=== PATIENT | male | born 1940 | race Caucasian/White ===

== ENCOUNTER → 2018-02-17 09:29 | Outpatient (CLI) | payer MEDICARE, OTHER ==
[2013-03-04 06:33] VITALS: BMI 28.6
== END | disposition home or self-care (01) ==
LOC: D.CT 09:29
DX: I71.4 Abdominal aortic aneurysm, without rupture (principal)

== ENCOUNTER 2019-01-27 17:41 | Emergency (ER) | payer MEDICARE, OTHER ==
[~2019-01-27] VITALS: Ht 185.4 cm; Wt 95.5 kg
[2019-01-27 18:09] VITALS: Ht 185.4 cm; Wt 95.5 kg
[2019-01-27] MEDS ORDERED: LISINOPRIL20 MG PO (18:11)
[2019-01-27] MEDS ORDERED: COREG 3.1253.125 MG PO (18:11)
[2019-01-27] MEDS ORDERED: PRAVACHOL20 MG PO (18:12)
[2019-01-27] MEDS ORDERED: NORVASC10 MG PO (18:12)
[2019-01-27] MEDS ORDERED: ZETIA10 MG PO (18:12)
[2019-01-27 18:47] LABS: BASOPHILS 0.3 % (0-2); EOSINOPHILS 1.6 % (0-7); HEMATOCRIT 44.1 % (42.0-54.0); HEMOGLOBIN 15.3 g/dL (13.5-17.5); IMMATURE GRANULOCYTES 0.4 % (0-5); LYMPHOCYTES 17.7 % (15-50); MCH 28.9 pg (26.0-34.0); MCHC 34.7 g/dL (31.0-37.0); MCV 83.2 fL (80.0-100.0); MONOCYTES 11.4 % (2-11); NEUTROPHILS 68.6 % (40-80); PLATELET COUNT 308 10x3/uL (130-400); RDW 13.5 % (11.5-14.5); WBC 13.9 10x3/uL (4.8-10.8)
[2019-01-27 18:58] LABS: APTT 30.8 SECONDS (22.8-39.4); INR 1.04 (0.85-1.17); PROTIME 13.1 SECONDS (11.6-15.0)
[2019-01-27 18:59] LABS: D-DIMER-QUANTITATIVE 1.28 ug/mLFEU (0.20-0.54)
[2019-01-27 19:21] LABS: ALBUMIN 3.6 g/dL (3.4-5.0); ALKALINE PHOSPHATASE 99 U/L (46-116); ALT (SGPT) 69 U/L (10-68); BILIRUBIN - TOTAL 0.49 mg/dL (0.2-1.3); CALC OSMOLALITY 269 mosm/kg (275-300); CALCIUM 9.2 mg/dL (8.5-10.1); CHLORIDE - SERUM 94 mmol/L (98-107); CREATININE - SERUM 1.3 mg/dL (0.6-1.3); GLUCOSE 118 mg/dL (74-106); POTASSIUM - SERUM 3.9 mmol/L (3.5-5.1); PROTEIN - SERUM 8.3 g/dL (6.4-8.2); SODIUM 132 mmol/L (136-145); UREA NITROGEN 25 mg/dL (7-18); eGFR NON AFRICAN AMERICAN 56 mL/min (90-120)
[2019-01-27 19:33] LABS: CREATINE KINASE 133 UL (21-232)
[2019-01-27 19:35] LABS: CKMB 1.1 U/L (0.0-3.6); TROPONIN-I < 0.017 ng/mL (0.000-0.060)
[2019-01-27] MEDS ORDERED: ALBUTEROL SULF8.5 GM INH (21:47)
[2019-01-27 22:35] VITALS: BP 132/80
== END 2019-01-27 22:36 | disposition home or self-care (01) ==
LOC: D.ER 17:41
PROVIDERS: Emergency Medicine
DX: J18.9 Pneumonia, unspecified organism (principal)

== ENCOUNTER 2019-02-08 11:57 | Outpatient (CLI) | payer MEDICARE, OTHER ==
[~2019-02-08] VITALS: Ht 185.4 cm; Wt 93.2 kg
--- NOTE | ~2019-02-08 | HEMODYNAMI ---
PATIENT:ANGELES YUNG MEDICAL RECORD: [id number] : 40 LOCATION:[facility] ADMISSION DATE: 02/08/19 Generatedon:02/08/201915:43 Patient name: ANGELES YUNG Patient #: [id number] SSN: : 1940 Date of study: 02/08/2019 Page: Of Hemodynamic Procedure Report Patient Data Patient Demographics Procedure consent was obtained First Name: ANGELES Gender: Male Last Name: AGA : 1940 Middle Initial: MARILYN Age: 79 year(s) Patient #: [id number] Race: Unknown Additional ID: [id number] Contact details [address]: [address] [place] [address] State: [place] City: [place] Zip code: [address] Past Medical History Allergies Allergen Reaction Date Comments Reported Other allergy 02/08/2019 PCN V Potassium, morphine Admission Admission Data Admission Date: 02/08/2019 Admission Time: 11:57 Admit Source: Other Lab Results Lab Result Date: 02/08/2019 Lab Result Time: 12:30 Biochemistry Name Units Result Min Max BUN mg/dl 18 --(---*)-- 7 18 Creatinine mg/dl 1.1 --(--*-)-- 0.6 1.3 CBC Name Units Result Min Max Hematocrit % 40.9 -*(----)-- 42 54 Hemoglobin g/dl 14.6 --(-*--)-- 13.5 17.5 Procedure Procedure Types Cath Procedure Diagnostic Procedure C LHC w/Coronaries Aortic Root Angiography Sedation Charges Moderate Sedation up to 30 minutes Procedure Description Procedure Date Procedure Date: 02/08/2019 Procedure Start Time: 14:54 Procedure End Time: 15:42 Procedure Staff Name Function Bernardo Dia MD Performing Physician Neto Posada RT Monitor Lorene De Dios RT Scrub Rosalind Flood RN Nurse Andrez Liriano RN Benzene Washer Procedure Data Cath Procedure Fluoroscopy Diagnostic fluoroscopy Total fluoroscopy Time: time: 17.5 min 17.5 min Diagnostic fluoroscopy Total fluoroscopy dose: dose: 1599 mGy 1599 mGy Contrast Material Contrast Material Type Amount (ml) Isovue 300 167 Entry Location Entry Primary Successful Side Size Upsize Upsize Entry Closure Flores ccessful Closure Location (Fr) 1 (Fr) 2 (Fr) Remarks Device Remarks Radial Right 6 Fr Mechanical artery Short Compression Femoral Right 5 Fr Exoseal artery Estimated blood loss: 5 ml Diagnostic catheters Device Type Used For End Catheter Placement DIAGNOSTIC Saulo 110cm Procedure 5Fr catheter (653010) DIAGNOSTIC AR MOD 5Fr Procedure Catheter ([id number]) DIAGNOSTIC AR2 MOD 5 Fr Procedure catheter (819006V) DIAGNOSTIC AR MOD 5Fr Procedure Catheter (219294U) DIAGNOSTIC JL 5 5Fr Procedure catheter (276206V) DIAGNOSTIC AR2 MOD 5 Fr Procedure catheter (463589Q) DIAGNOSTIC MPA-2 5Fr Procedure catheter (245173H) DIAGNOSTIC 3DRC 5Fr Procedure catheter (124240K) DIAGNOSTIC AL2 5Fr Procedure catheter (387339D) DIAGNOSTIC AL1 5Fr Procedure catheter (160034M) DIAGNOSTIC RCB 5Fr Procedure catheter (634965J) DIAGNOSTIC Pigtail 5Fr Procedure catheter (422500H) DIAGNOSTIC Billings 110cm 5 Procedure Fr catheter (027895) Procedure Complications No complications Procedure Medications Medication Administration Route Dosage 0.9% NaCl I.V. 100 ml/hr Oxygen etCO2 Nasal cannula 2 l/min Lidocaine 2% added to field 20 Heparin Flush Bag added to field 2 bags (1000units/500ml NS) Radial Cocktail added to field 1 syringe (Verapomil 2mg/Nitro 400mcg/Heparin 1500units) Versed I.V. 2 mg Fentanyl I.V. 50 mcg Versed I.V. 2 mg Fentanyl I.V. 50 mcg Hemodynamics Rest HGB: 14.6 (g/dl) Heart Rate: 53 (bpm) Pressure Samples Time Site Value (mmHg) Purpose Heart Use Rate(bpm) 15:00 LV 124/-4,4 Snapshot 69 Gradients Valve Time Site Site Mean SEP/DFP Peak To Heart Use 1 2 (mmHg) (sec/min) Peak Rate (mmHg) (bpm) Aortic 15:01 LV AO 65 Snapshots Pre Cath Intra NCS Post Cath Vital Signs Time Heart Resp SPO2 etCO2 NIBP (mmHg) Rhythm Pain Sedation Rate (ipm) (%) (mmHg) Status Level (bpm) 14:36:27 57 11 98 31 144/86(135) SB 0 (11) 10(A) , No pain 14:40:51 51 17 96 32.2 126/73(116) SB 0 (11) 10(A) , No pain 14:45:09 54 16 96 34 121/72(102) SB 0 (11) 10(A) , No pain 14:49:25 56 17 98 34.5 109/72(96) SB 0 (11) 10(A) , No pain 14:53:39 51 16 98 18.7 108/75(88) SB 0 (11) 9(A) , No pain 14:57:51 64 16 97 27.7 101/70(79) NSR 0 (11) 9(A) , No pain 15:02:01 66 19 98 26.9 108/74(86) NSR 0 (11) 9(A) , No pain 15:06:15 58 15 97 33 123/75(98) SB 0 (11) 9(A) , No pain 15:10:33 56 17 96 29.9 119/74(89) SB 0 (11) 9(A) , No pain 15:15:36 55 18 96 28.5 119/73(94) SB 0 (11) 9(A) , No pain 15:19:54 53 18 97 29.2 125/72(103) SB 0 (11) 9(A) , No pain 15:24:53 53 16 96 30.7 123/77(105) SB 0 (11) 9(A) , No pain 15:29:07 53 16 96 26.9 122/74(102) SB 0 (11) 9(A) , No pain 15:33:25 56 16 96 27.8 116/71(95) SB 0 (11) 9(A) , No pain 15:37:43 54 16 98 30.6 114/65(94) SB 0 (11) 10(A) , No pain 15:41:59 55 15 95 0 117/75(96) SB 0 (11) 10(A) , No pain Medications Time Medication Route Dose Verified Delivered Reason Notes E ffectiveness by by 14:36:15 0.9% NaCl I.V. 100 Bernardo Boyer used for ml/hr [place] Flood proposal analyst 14:36:21 Oxygen etCO2 2 l/min Bernardo Rosalind used for Nasal [place] procedure cannula RN 14:36:38 Lidocaine 2% added 20ml Bernardo Bernardo for local to vial [place] Dia MD anesthetic field 14:36:43 Heparin Flush added 2 bags Bernardo Bernardo used for Bag to [place] Dia MD procedure (1000units/500ml field NS) 14:36:49 Radial Cocktail added 1 Bernardo Bernardo used for (Verapomil to syringe [place] Dia MD procedure 2mg/Nitro field 400mcg/Heparin 1500units) 14:51:17 Versed I.V. 2 mg Bernardo Rosalind for [place] sedation RN 14:51:34 Fentanyl I.V. 50 mcg Bernardo Rosalind for [place] sedation RN 14:55:04 Fentanyl I.V. 50 mcg Bernardo Rosalind for [place] sedation RN 14:56:53 Versed I.V. 2 mg Bernardo Rosalind for [place] sedation puppet maker Log Time Note 14:19:40 Informed consent obtained and on chart 14:19:43 Admit Source: Other 14:20:06 Diagnostic Cath status Elective 14:20:08 Time tracking: Regular hours (M-F 7:00 - 5:00) 14:20:11 Plan of Care:Hemodynamics will remain stable., Cardiac rhythm will remain stable., Comfort level will be maintained., Respiratory function will remain adequate., Patient/ family verbilizes understanding of procedure., Procedure tolerated without complication., Recovers from procedure without complications.. 14:20:32 H&P Date Dictated: 01/28/2019 Within 30 days and on chart., H&P Addendum completed by physician on day of procedure. (MUST COMPLETE FOR ALL OUTPATIENTS). 14:21:27 Andrez Liriano RN sent for patient. Start room use. 14:22:10 Lab Result : Creatinine 1.1 mg/dl 14:22:10 Lab Result : BUN 18 mg/dl 14:22:10 Lab Result : Hemoglobin 14.6 g/dl 14:22:10 Lab Result : Hematocrit 40.9 % 14:22:13 Lab results completed and on chart. 14:28:47 Patient received from Pre/Post Procedure Room to CCL 2 Alert and oriented. Tansferred to table in Supine position. 14:28:48 Warm blankets applied, and izzy hugger turned on for patient comfort. 14:28:49 Correct patient and procedure confirmed by team. 14:28:49 ECG and BP/O2 sat monitors applied to patient. 14:28:51 Pre-procedure instructions explained to patient. 14:28:52 Pre-op teaching completed and patient verbalized understanding. 14:28:53 Family in waiting room. 14:28:54 Patient NPO since Midnight. 14:29:22 Patient allergic to Other allergyPCN V Potassium, morphine 14:35:12 Vital chart was started 14:36:15 0.9% NaCl 100 ml/hr I.V. was administered by Rosalind Flood RN; used for procedure; 14:36:21 Oxygen 2 l/min etCO2 Nasal cannula was administered by Rosalind Flood RN; used for procedure; 14:36:38 Lidocaine 2% 20ml vial added to field was administered by Bernardo Dia MD; for local anesthetic; 14:36:43 Heparin Flush Bag (1000units/500ml NS) 2 bags added to field was administered by Bernardo Dia MD; used for procedure; 14:36:49 Radial Cocktail (Verapomil 2mg/Nitro 400mcg/Heparin 1500units) 1 syringe added to field was administered by Bernardo Dia MD; used for procedure; 14:43:18 Baseline sample Acquired. 14:43:23 Rhythm: sinus rhythm 14:43:24 Full Disclosure recording started 14:45:10 Is patient on blood thinner?No 14:45:12 Patient diabetic? No. 14:45:15 Previous problem with sedation/anesthesia? No ? 14:45:17 Snore? Yes 14:45:18 Sleep apnea? No 14:45:19 Deviated septum? No 14:45:20 Opens mouth fully? Yes 14:45:20 Sticks out tongue? Yes 14:45:22 Airway obstruction? No ? 14:45:25 Dentures? No ? 14:45:29 Pre procedure: right dorsailis pedis pulse 1+ Palpable, but thready & weak; easily obliterated 14:45:31 Patient pain scale 0/10 ?. 14:45:38 IV patent on arrival in left wrist with 0.9% NaCl at O. 14:45:42 Right Radial & Right Groin area was prepped with chlora-prep and draped in sterile fashion 14:45:42 Alarms reviewed by R. N. 14:45:43 Sharps counted by scrub and verified by R.N. 14:45:45 Use device set Radial Dx or PCI 14:45:46 ACIST Syringe (80254) opened to sterile field. 14:45:47 Medline Cath Pack ([id number]) opened to sterile field. 14:45:47 Bag Decanter (2002S) opened to sterile field. 14:45:48 ACIST Hand Control (75151) opened to sterile field. 14:45:49 ACIST Manifold (82129) opened to sterile field. 14:45:49 Tegaderm 4 x 4 (1626W) opened to sterile field. 14:45:50 DIAGNOSTIC WIRE .035 260cm J wire (452138) opened to sterile field. 14:45:50 MBrace Wrist Support (059821570) opened to sterile field. 14:45:51 SHEATH 6FR Slender (80-1060) opened to sterile field. 14:45:52 NEEDLE Cook 21G 4cm Radial (H44330) opened to sterile field. 14:47:18 Zero performed for pressure channel P1 14:50:18 Physician arrived 14:50:19 --------ALL STOP TIME OUT------ 14:50:19 Final Timeout: patient, procedure, and site verified with staff and physician. All members of the team are in agreement. 14:50:21 Right Radial & Right Groin site verified by team. 14:50:24 Maximum allowable Isovue 300 dose 300ml. Physician notified. (300ml for normal creatinines. For patients with creatinine of 1.7 or higher multiply weight(kg) x 5 divided by creatinine.) 14:50:29 Fire Safety Assessment: A--An alcohol-based skin anteseptic being used preoperatively., C--Open oxygen or nitrous oxide is being used., D--An ESU, laser, or fiber-optic light is being used. 14:50:32 Physical assessment completed. ASA score P 2 - A patient with mild systemic disease as per Bernardo Dia MD. 14:50:35 Sedation plan: IV Moderate Sedation Medication:Versed, Fentanyl 14:51:17 Versed 2 mg I.V. was administered by Rosalind Flood RN; for sedation; 14:51:34 Fentanyl 50 mcg I.V. was administered by Rosalind Flood RN; for sedation; 14:54:47 Procedure started. 14:54:50 Local anesthetic to right radial artery with Lidocaine 2% by Bernardo Dia MD.INITIAL ACCESS ONLY 14:54:57 A 6 Fr Short sheath was inserted into the Right Radial artery 14:55:04 Fentanyl 50 mcg I.V. was administered by Rosalind Flood RN; for sedation; 14:55:35 A DIAGNOSTIC Saulo 110cm 5Fr catheter (745347) was advanced over the wire and used for Procedure. 14:56:53 Versed 2 mg I.V. was administered by Rosalind Flood RN; for sedation; 14:58:40 GLIDE WIRE ANGLE 260cm (FD9441) opened to sterile field. 14:58:48 glide wire advanced. 14:59:19 TORQUE DEVICE PLASTIC .038 ( TD01) opened to sterile field. 15:00:41 LV gram done using CHAVEZ 15:00:44 Injector settings: Ml/sec: 5, Volume: 15, 15:00:48 LV hemodynamics recorded. 15:00:53 EF : 60 % 15:03:11 Catheter exchanged over wire. 15:03:18 A DIAGNOSTIC AR MOD 5Fr Catheter (154195X) was advanced over the wire and used for Procedure. 15:04:35 RCA angiography performed. 15:05:02 Catheter exchanged over wire. 15:05:21 A DIAGNOSTIC AR2 MOD 5 Fr catheter (968380Q) was advanced over the wire and used for Procedure. 15:07:21 Catheter removed. unable to cannulate vessel. 15:07:41 SHEATH 5FR Burt (DVX251) opened to sterile field. 15:08:39 Local anesthetic to right femoral artery with Lidocaine 2% by Bernardo Dia MD.ADDITIONAL ACCESS 15:08:46 A 5 Fr sheath was inserted into the Right Femoral artery 15:11:16 A DIAGNOSTIC AR MOD 5Fr Catheter (795955W) was advanced over the wire and used for Procedure. 15:11:29 Catheter removed. unable to cannulate vessel. 15:11:40 A DIAGNOSTIC JL 5 5Fr catheter (811246K) was advanced over the wire and used for Procedure. 15:13:10 LCA angiography performed. 15:14:32 Catheter exchanged over wire. 15:17:08 A DIAGNOSTIC AR2 MOD 5 Fr catheter (850513T) was advanced over the wire and used for Procedure. 15:17:10 RCA angiography performed. 15:18:08 Catheter exchanged over wire. 15:19:09 A DIAGNOSTIC MPA-2 5Fr catheter (439781W) was advanced over the wire and used for Procedure. 15:19:55 Catheter exchanged over wire. 15:20:06 A DIAGNOSTIC 3DRC 5Fr catheter (196421K) was advanced over the wire and used for Procedure. 15:24:55 A DIAGNOSTIC AL2 5Fr catheter (997359D) was advanced over the wire and used for Procedure. 15:25:04 Catheter removed. unable to cannulate vessel. 15:25:11 A DIAGNOSTIC AL1 5Fr catheter (236768S) was advanced over the wire and used for Procedure. 15:28:06 Catheter removed. unable to cannulate vessel. 15:28:13 A DIAGNOSTIC RCB 5Fr catheter (105157Q) was advanced over the wire and used for Procedure. 15:30:39 RCA angiography performed. 15:30:48 A DIAGNOSTIC Pigtail 5Fr catheter (050324F) was advanced over the wire and used for Procedure. 15:32:21 Aortic Root visualized 15:34:35 Catheter exchanged over wire. 15:34:44 A DIAGNOSTIC Billings 110cm 5 Fr catheter (651141) was advanced over the wire and used for Procedure. 15:36:41 RCA angiography performed. 15:36:42 Catheter removed. 15:36:46 TR BAND Standard (NRB25LLP) opened to sterile field. 15:36:52 EXOSEAL 5Fr (EX500) opened to sterile field. 15:37:29 Sheath removed intact; hemostasis achieved with Mechanical Compression to the Right Radial artery. 15:37:56 Sheath removed intact; hemostasis achieved with Exoseal to the Right Femoral artery. 15:38:44 Procedure ended.(Physican Out) 15:40:22 Fluoroscopy time 17.50 minutes. 15:40:33 Fluoroscopy dose: 1599 mGy 15:40:33 Flurop Dose total: 1599 15:40:39 Contrast amount:Isovue 300 167ml. 15:40:40 Sharps counted by scrub and verified by R.N. 15:40:42 TR band inflated with 12cc of air. 15:40:43 Insertion/operative site no bleeding no hematoma. 15:40:46 Post-op/insertion site Right Femoral artery dressed using a 4 x 4 and Tegaderm. 15:40:49 Post right femoral artery:stable, soft, clean and dry 15:40:51 Post Procedure Pulses reassessed and unchanged 15:40:53 Post-procedure physical assessment completed. ASA score P 2 - A patient with mild systemic disease as per Bernardo Dia MD. 15:40:55 Post procedure rhythm: unchanged. 15:40:58 Estimated blood loss: 5 ml 15:41:00 Post procedure instruction explained to patient.Patient verbalizes understanding. 15:41:00 Patient needs reinforcement of post procedure teaching. 15:41:20 Procedure type changed to Cath procedure, Diagnostic procedure, LHC, LHC w/Coronaries, Aortic Root Angiography, Sedation Charges, Moderate Sedation up to 30 minutes 15:42:19 Procedure and supply charges have been captured, reviewed, submitted and are correct. 15:42:25 Procedure Complication : No complications 15:42:27 Vital chart was stopped 15:42:30 See physician's report for complete and final results. 15:42:33 Report given to Pre/Post Procedure Room. 15:42:35 Patient transfered to Pre/Post Procedure Room with Stretcher. 15:42:37 Procedure ended. 15:42:37 Full Disclosure recording stopped 15:42:41 End room use (Document Last) Device Usage Item Name Manufacture Quantity Catalog Hospital Part Current Minimal Lot# / Number Charge Number Stock Stock Serial# Code ACIST Acist 1 97426 680526 257934 463389 20 Syringe Medical (21660) Systems Inc Medline Medline 1 [id number] 581179 83449 382617 5 Cath Pack ([id number]) Bag Microtek 1 352559 70450 999353 5 Decanter Medical Inc. () ACIST Hand Acist 1 70991 677311 908597 775584 5 Control Medical (52548) Systems Inc ACIST Acist 1 68269 340317 799784 787224 5 Manifold Medical (17059) Systems Inc Tegaderm 4 3M 1 1626W 189373 365921 056226 5 x 4 (1626W) DIAGNOSTIC St Manuel 1 615770 425365 692670 016440 30 WIRE .035 260cm J wire (122915) MBrace Advanced 1 140-0250-00 746467 99647 133236 5 Wrist Vascular Support Dynamics (541245177) SHEATH 6FR Terumo 1 [id number] 458561 619101 184159 5 Slender (80-1060) NEEDLE Cook [place] [employer] 1 I77332 828221 499448 901213 5 21G 4cm Radial (C66949) DIAGNOSTIC Terumo 1 405023 875817 557317 684016 5 Saulo 110cm 5Fr catheter (960126) GLIDE WIRE Terumo 1 WW9195 886164 314433 862180 5 ANGLE 260cm (LW3357) TORQUE [place] 1 TD01 024660 655203 827528 5 DEVICE Scientific PLASTIC .038 ( TD01) DIAGNOSTIC Cardinal 1 033766R 688669 106341 495548 15 AR MOD 5Fr Health Catheter (974927Q) DIAGNOSTIC Cardinal 1 174464S 826604 503838 875782 20 AR2 MOD 5 Health Fr catheter (787268T) SHEATH 5FR Terumo 1 MEB919 498331 890917 357813 5 Burt (TEZ557) DIAGNOSTIC Cardinal 1 409491R 175149 868630 958602 5 JL 5 5Fr Health catheter (900176D) DIAGNOSTIC Cardinal 1 682355H 755111 389211 966012 5 MPA-2 5Fr Health catheter (234132Q) DIAGNOSTIC Cardinal 1 854814L 908377 081353 883876 9 3DRC 5Fr Health catheter (039133M) DIAGNOSTIC Cardinal 1 584880F 322552 226711 772364 15 AL2 5Fr Health catheter (475551Z) DIAGNOSTIC Cardinal 1 079341K 989087 589441 243364 15 AL1 5Fr Health catheter (887005R) DIAGNOSTIC Cardinal 1 051375B 978460 724271 766939 5 RCB 5Fr Health catheter (697827N) DIAGNOSTIC Cardinal 1 384649A 559650 143737 511059 5 Pigtail 5Fr Health catheter (631668H) DIAGNOSTIC Terumo 1 40-0790 868439 406437 477907 5 Billings 110cm 5 Fr catheter (130699) TR BAND Terumo 1 JXY56-VJI 002043 023833 302857 40 Standard ([id number]) EXOSEAL 5Fr Cardinal 1 EX500 115992 353188 532601 10 (EX500) Health Signature [facility] Stage Time Signature Unsigned Intra-Procedure 02/08/2019 Neto Posada 3:43:18 PM RT(R) Signatures Monitor : Neto Posada RT Signature : Date : Time : [id number] [place] [address]
[~2019-02-08 11:57] MED LIST: ALBUTEROL SULF8.5 GM INH; COREG 3.1253.125 MG PO; LISINOPRIL20 MG PO; NORVASC10 MG PO; PRAVACHOL20 MG PO; ZETIA10 MG PO
[2019-02-08] MEDS ORDERED: PRINIVIL10 MG PO (12:14)
[2019-02-08] MEDS ORDERED: LISINOPRIL5 MG PO (12:14)
[2019-02-08] MEDS ORDERED: PRAVACHOL20 MG PO (12:15)
[2019-02-08] MEDS ORDERED: MUCINEX600 MG PO (12:16)
[2019-02-08] MEDS ORDERED: BAYER CHEWABLE81 MG PO (12:16)
[2019-02-08] MEDS ORDERED: ARMOUR THYROID90 MG PO (12:19)
[2019-02-08] MEDS ORDERED: HCTZ25 MG PO (12:19)
[2019-02-08 12:28] VITALS: BP 137/74; Ht 185.4 cm; Wt 93.2 kg
[2019-02-08 12:43] LABS: BASOPHILS 0.6 % (0-2); EOSINOPHILS 1.1 % (0-7); HEMATOCRIT 40.9 % (42.0-54.0); HEMOGLOBIN 14.6 g/dL (13.5-17.5); IMMATURE GRANULOCYTES 0.3 % (0-5); LYMPHOCYTES 33.6 % (15-50); MCH 29.1 pg (26.0-34.0); MCHC 35.7 g/dL (31.0-37.0); MCV 81.5 fL (80.0-100.0); MEAN PLATELET VOLUME 8.9 fL (7.4-10.4); MONOCYTES 10.3 % (2-11); NEUTROPHILS 54.1 % (40-80); PLATELET COUNT 301 10x3/uL (130-400); RBC 5.02 10x6/uL (4.20-6.10); RDW 13.3 % (11.5-14.5); WBC 10.6 10x3/uL (4.8-10.8)
[2019-02-08 12:56] LABS: ANION GAP 11.8 mmol/L (8-16); CALCIUM 9.2 mg/dL (8.5-10.1); CARBON DIOXIDE 28.3 mmol/L (21.0-32.0); CREATININE - SERUM 1.1 mg/dL (0.6-1.3); POTASSIUM - SERUM 4.1 mmol/L (3.5-5.1)
--- NOTE | 2019-02-08 16:10 | NUR ---
2L NC, NO RESP DISTRESS. RIGHT WRIST TR BAND AND RIGHT GROIN 5F EXOSEAL CDI, NO BLEEDING OR HEMATOMA NOTED. NO C/O PAIN OR NAUSEA. VSS. FAMILY AT BEDSIDE, CALL LIGHT WITHIN REACH.
--- NOTE | 2019-02-08 17:00 | NUR ---
HOB ELEVATED 30 DEGREES. RIGHT GROIN 5F EXOSEAL CDI. 3CC OF AIR REMOVED FROM TR BAND WITH NO BLEEDING NOTED. SIPPING ON DRINK AND EATING SANDWICH WITH NO C/O NAUSEA. VSS. WILL CONTINUE TO MONITOR CLOSELY.
--- NOTE | 2019-02-08 17:18 | NUR ---
3CC OF AIR REMOVED FROM TR BAND WITH NO BLEEDING NOTED.
--- NOTE | 2019-02-08 17:40 | NUR ---
2CC OF AIR REMOVED FROM TR BAND WITH NO BLEEDING NOTED. LEFT PIV D/C'D WITH CATHETER INTACT, BAND AID TO SITE. UP TO BEDSIDE TO GET DRESSED. AMBULATED TO RESTROOM.
--- NOTE | 2019-02-08 17:50 | NUR ---
REMAINING AIR REMOVED FROM TR BAND WITH NO BLEEDING NOTED. DRESSING PLACED TO SITE. DISCHARGE INSTRUCTIONS GIVEN TO PT AND , BOTH VERBALIZED UNDERSTANDING.
--- NOTE | 2019-02-08 18:00 | NUR ---
TAKEN OUT VIA WHEELCHAIR BY CATH CREW DIRECTOR. LEFT FACILITY WITH FAMILY AND ALL PERSOANL BELONGINGS.
== END 2019-02-08 18:00 | disposition home or self-care (01) ==
LOC: D.CATH 11:57
PROVIDERS: ATTEND Internal Medicine Cardiovascular Disease
DX: I25.119 Atherosclerotic heart disease of native coronary artery with unspecified angina pectoris (principal); I71.2 Thoracic aortic aneurysm, without rupture; Z01.812 Encounter for preprocedural laboratory examination

== ENCOUNTER → 2019-02-10 07:43 | Outpatient (CLI) | payer MEDICARE, OTHER ==
[2019-02-08 12:28] VITALS: BMI 27.1
[~2019-02-10 07:43] MED LIST changes: +ARMOUR THYROID90 MG PO; +BAYER CHEWABLE81 MG PO; +COLACE100 MG PO; +HCTZ25 MG PO; +HEMOCYTE PLUS C1 CAP PO; +K-DUR20 MEQ PO; +LISINOPRIL5 MG PO; +MUCINEX600 MG PO; +OMEPRAZOLE20 M1 PO; +PERCOCET 5-3251 TAB PO; +PLAVIX75 MG PO; +PRINIVIL10 MG PO; +RED YEAST RICE600 MG PO; +VITAMIN B-121000 MCG PO; +VITAMIN D31000 UNIT PO
== END | disposition home or self-care (01) ==
LOC: D.US 01-11 08:30
PROVIDERS: ATTEND Internal Medicine Cardiovascular Disease
DX: I25.10 Atherosclerotic heart disease of native coronary artery without angina pectoris (principal)

== ENCOUNTER → 2019-02-11 09:58 | Outpatient (CLI) | payer MEDICARE, OTHER ==
[2019-02-08 12:28] VITALS: BMI 27.1
== END | disposition home or self-care (01) ==
LOC: D.CT 09:58
PROVIDERS: ATTEND Thoracic Surgery (Cardiothoracic Vascular Surgery)
DX: I65.22 Occlusion and stenosis of left carotid artery (principal); I71.4 Abdominal aortic aneurysm, without rupture

== ENCOUNTER 2019-02-11 14:26 | Inpatient (IN) | payer MEDICARE, OTHER ==
[~2019-02-11] VITALS: Ht 185.4 cm; Wt 90.0 kg
[~2019-02-11 14:26] MED LIST changes: -COLACE100 MG PO; -HEMOCYTE PLUS C1 CAP PO; -K-DUR20 MEQ PO; -OMEPRAZOLE20 M1 PO; -PERCOCET 5-3251 TAB PO; -PLAVIX75 MG PO; -RED YEAST RICE600 MG PO; -VITAMIN B-121000 MCG PO; -VITAMIN D31000 UNIT PO
[2019-02-14] MEDS ORDERED: OMEPRAZOLE20 M1 PO (08:06)
[2019-02-14] MEDS ORDERED: VITAMIN B-121000 MCG PO (08:07)
[2019-02-14] MEDS ORDERED: VITAMIN D31000 UNIT PO (08:07)
[2019-02-14] MEDS ORDERED: RED YEAST RICE600 MG PO (08:08)
[2019-02-14 10:22] LABS: APPEARANCE CLEAR (CLEAR); BILIRUBIN NEGATIVE (NEGATIVE); COLOR YELLOW (YELLOW); GLUCOSE NEGATIVE (NEGATIVE); KETONE NEGATIVE (NEGATIVE); NITRITE NEGATIVE (NEGATIVE); PROTEIN NEGATIVE (NEGATIVE); SPECIFIC GRAVITY 1.005 (1.005-1.020); UROBILINOGEN NORMAL (NORMAL)
[2019-02-14 10:25] LABS: HEMATOCRIT 39.3 % (42.0-54.0); HEMOGLOBIN 13.8 g/dL (13.5-17.5); MCH 29.1 pg (26.0-34.0); MCHC 35.1 g/dL (31.0-37.0); MCV 82.7 fL (80.0-100.0); MEAN PLATELET VOLUME 8.5 fL (7.4-10.4); RBC 4.75 10x6/uL (4.20-6.10); RDW 13.3 % (11.5-14.5); WBC 7.8 10x3/uL (4.8-10.8)
[2019-02-14 10:41] LABS: ALBUMIN 3.5 g/dL (3.4-5.0); ANION GAP 8.1 mmol/L (8-16); BILIRUBIN - TOTAL 0.69 mg/dL (0.2-1.3); CALCIUM 9.2 mg/dL (8.5-10.1); CARBON DIOXIDE 30.7 mmol/L (21.0-32.0); CREATININE - SERUM 1.2 mg/dL (0.6-1.3); POTASSIUM - SERUM 3.8 mmol/L (3.5-5.1); PROTEIN - SERUM 7.6 g/dL (6.4-8.2)
[2019-02-14 11:49] LABS: APTT 34.7 SECONDS (22.8-39.4); INR 1.07 (0.85-1.17); PROTIME 13.4 SECONDS (11.6-15.0)
[2019-02-15] VITALS (25 sets, daily range): BP systolic 95–130; BP diastolic 45–88; Ht 185.4 cm; Wt 90.0 kg
--- NOTE | 2019-02-15 10:42 | NUR ---
PT ARRIVED TO ROOM 1000, TOOK OVER PT CARE FROM ANOTHER NURSE APPROX 1010, PT ALERT AND ORIENTED O2 4L NC, L NECK INCISION DRESSING CDI WITH OBDULIA DRAIN COMPRESSED, ICE IN PLACE, REMOVED BY DR HERMOSILLO, R SUBCLAVIAN CVL DRESSING CDI WITH PLASMALYTE 30ML/HR, NEOSYNEPHRINE 0.04MCG/KG/MIN, NOW 0.03 MCG/KG/MIN, NR RADIAL A LINE ZEROED WITH GOOD WAVEFORM, WRIST PROTECTOR IN PLACE, L HAND PIV SL, CRITICORE DRAINING YELLOW URINE, PT TEMP 37.5C, BLANKETS REMOVED PER REQUEST, NEURO CHECKS WNL, TONGUE AND SMILE WITHOUT DEVIATION AND HANG AND FOOT MOVEMENT WNL, TEDS AND SCDS IN PLACE, CALL LIGHT WITHIN REACH, FAMILY UPDATED BY DR HERMOSILLO AND IN ROOM, ALARMS SET, WILL CONTINUE TO MONITOR
--- NOTE | 2019-02-15 14:12 | NUR ---
1200 GRICELDA WEANED OFF [address] SANTOS NURSE NOTIFIED OF HR 56 NSR
--- NOTE | 2019-02-15 18:11 | NUR ---
1600 DANGLED ON SIDE OF BED 1800 SOME NAUSEA NOTED WITH DINNER TRAY, TOLERATING JUICE WELL BUT NOT EATING BROTH
--- NOTE | 2019-02-15 19:00 | NUR ---
REPORT RECEIVED CARE ASSUMED INITIAL SHIFT ASSESSMENT COMPLETED SEE FLOWSHEET PT RESTING IN BED HOB ELEVATED WATCHING TELEVISION. DRESSING TO LEFT NECK CDI WNL AND NO SWELLING OR DRAINAGE NOTED. JUAN DRAIN TO LEFT NECK WITH APPROXIMATELY 40CC DARK MAROON BLOOD IN COMPRESSED BULB. IS AT BEDSIDE PT EASILY PULLED 2250 FOLLOWED WITH GOOD COUGH. PT TEACHING DONE REGARDING IMPORTANCE OF IS AND PT VERBALIZED COMPREHENSION. RIGHT RADIAL A-LINE WITH GOOD WAVE FORM LEVELED AND ZEROED. CVP LEVELED AND ZEROED. F/C CATH CARE DONE WITH STAT LOCK ATTATCHED TO RIGHT INNER LEG. BED IN LOW POSITION CALL LIGHT IN REACH. IVF AND IV LINES CURRENT LABELED AND DATED APPROPRIATE.
--- NOTE | 2019-02-15 19:30 | NUR ---
PT TEACHING DONE REGARDING PENDING CABG AND INFORMATION BOOKLET REGARDING SURGERY GIVEN. QUESTIONS ANSWERED.
--- NOTE | 2019-02-15 21:00 | NUR ---
CALLED, SECURITY CODE VERIFIED. UPDATE GIVEN QUESTIONS ANSWERED
--- NOTE | 2019-02-15 23:00 | NUR ---
SHIFT REASSESSMENT COMPLETED SEE FLOWSHEET. NO SIGNIFICANT CHANGES
[2019-02-16] VITALS (24 sets, daily range): BP systolic 112–144; BP diastolic 51–87
--- NOTE | 2019-02-16 01:00 | NUR ---
PT SLEEPING WELL. HAVING SOME NONSYMPTOMATIC BRADYCARDIA.
--- NOTE | 2019-02-16 03:00 | NUR ---
SHIFT REASSESSMENT COMPLETED SEE FLOWSHEET. NO ACUTE CHANGES
--- NOTE | 2019-02-16 07:50 | NUR ---
0700 PT RECIEVED ALERT AN CHLOE IENTED O2 2L NC, DECREASED TO ROOM AIR, VSS DENIES PAIN R NECK INCISION CDI WITH OBDULIA DRAIN COMPRESSED SCANT BLOODY DRAINAGE, R SUBCLAVIAN CVL DRESSING CDI WITH PLASMALYTE 30ML/HR AND ZINACEF 11.4ML/HR, CRITICORE DRAINING YELLOW URINE, R A LINE ZEROED, WAVEFORM POOR AT TIMES, WRIST PROTECTOR IN PLACE, WILL CONTINUE TO MONITOR
--- NOTE | 2019-02-16 09:17 | NUR ---
OBDULIA DRAIN DCD DRESSING APPLIED, NO SIGNS OF BLEEDING, PT TOLERATED WELL
--- NOTE | 2019-02-16 09:51 | NUR ---
LARA CATHETER DCD TIP INTACT
--- NOTE | 2019-02-16 09:57 | OP ---
PATIENT NAME: ANGELES YUNG MEDICAL RECORD: [id number] :40 [facility]ATION[facility] ADMISSION DATE:02/15/19 SURGEON: CHUCK HERMOSILLO MD DATE OF OPERATION: 02/15/2019 SURGEON: Chuck Hermosillo MD EXTERIOR DESIGNER: Isaias Hsu. OPERATION PERFORMED: Left carotid endarterectomy. PREOPERATIVE DIAGNOSES: Left carotid stenosis and coronary artery disease. POSTOPERATIVE DIAGNOSES: Left carotid stenosis and coronary artery disease. ANESTHESIA: General endotracheal anesthesia. ESTIMATED BLOOD LOSS: 50 cc. COMPLICATIONS: None. SPECIMENS: Plaque. CONDITION: Stable. DISPOSITION: CV ICU. OPERATIVE FINDINGS: 1. Long irregular plaque in the internal carotid artery, feathered well distally and primary closure. 2. Neurologically intact to CV ICU. OPERATIVE INDICATION: Significant multivessel coronary artery disease and left carotid stenosis, asymptomatic. PROCEDURE NOTE IN DETAIL: The patient was brought to the operating suite. General anesthesia was obtained. The patient was prepped and draped. An oblique incision was made in the neck, taken down through the subcutaneous tissue and muscle layer where the common carotid was dissected out and encircled with a vessel loop. The plaque was long and irregular and the internal carotid was dissected out distally. Facial venous branches were divided between ligatures and suture ligatures as well as clips. The ansa was divided between clips. The external carotid and thyroid branch were encircled with vessel loops. Heparin was given. After the heparin had circulated, backbleeding was controlled with a bulldog clamp, inflow with a vascular clamp and backbleeding of the external carotid and thyroid branch controlled with vessel loops. After 2 minutes, the cerebral oximetry remained normal and the EEG was normal. Endarterectomy was begun by opening the common carotid artery, taking the arteriotomy out through the region of abnormal internal carotid and into the more distal internal carotid, where it was a normal-appearing artery. In the common carotid artery, the plaque was divided. Eversion endarterectomy of the external carotid was performed and the plaque feathered well distally. Thorough irrigation was undertaken. All bits of loose debris were removed. The artery was closed primarily and prior to completing the anastomosis both ends were flushed and thorough irrigation was undertaken. The anastomosis was completed, OPERATIVE REPORT [id number] ANGELES YUNG flow restored first to the external carotid and then to the internal carotid. Interrupted patch suture was used for hemostasis. Protamine was given. A drain was placed through a separate stab wound and in the first stab wound the external jugular was entered and it required a 1 cm incision for ligation and a separate stab wound for the drain. The neck was then closed in 3 layers including Dermabond on the skin. Anesthesia was reversed. The patient neurologically intact to CV ICU. TRANSINT:[id number] Voice Confirmation ID: [id number] DOCUMENT ID: [id number] CHUCK HERMOSILLO MD at 0957 CC: GODFREY BAPTISTE M.D. and JAIMIE LOVETT MD [id number] DICTATION DATE: 02/15/19 1252 ART PROFESSOR: 02/15/19 1320 ADM IN [place] [id number] [place] [address]
[2019-02-16 14:22] LABS: BASOPHILS 0.3 % (0-2); EOSINOPHILS 1.2 % (0-7); HEMOGLOBIN 12.5 g/dL (13.5-17.5); IMMATURE GRANULOCYTES 0.1 % (0-5); MCHC 34.7 g/dL (31.0-37.0); MCV 83.5 fL (80.0-100.0); MEAN PLATELET VOLUME 8.7 fL (7.4-10.4); MONOCYTES 10.1 % (2-11); NEUTROPHILS 66.3 % (40-80); RBC 4.31 10x6/uL (4.20-6.10); RDW 13.6 % (11.5-14.5); WBC 9.5 10x3/uL (4.8-10.8)
[2019-02-16 14:40] LABS: PLATELET COUNT 247 10x3/uL (130-400)
[2019-02-16 14:41] LABS: APTT 32.6 SECONDS (22.8-39.4); INR 1.23 (0.85-1.17); PROTIME 14.9 SECONDS (11.6-15.0)
[2019-02-16 14:47] LABS: ALBUMIN 2.9 g/dL (3.4-5.0); ANION GAP 9.9 mmol/L (8-16); BILIRUBIN - TOTAL 0.62 mg/dL (0.2-1.3); CALCIUM 8.5 mg/dL (8.5-10.1); CARBON DIOXIDE 29.6 mmol/L (21.0-32.0); CREATININE - SERUM 1.1 mg/dL (0.6-1.3); PHOSPHOROUS 2.8 mg/dL (2.5-4.9); POTASSIUM - SERUM 3.5 mmol/L (3.5-5.1); T4 THYROXIN - FREE 1.04 ng/dL (0.76-1.46); THYROID STIMULATING HORMONE 0.57 uIU/mL (0.36-3.74); URIC ACID 3.9 mg/dL (2.6-7.2)
--- NOTE | 2019-02-16 16:22 | MORECARE ---
CASE MANAGEMENT DISCHARGE SUMMARY PATIENT: ANGELES YUNG UNIT: [id number] ADM DATE: 02/15/19 AGE: 79 : 40 SEX: M ROOM/BED: D.06 AUTHOR: SEAN,DOC PHYSICIAN: REFERRING PHYSICIAN: OSCAR HERMOSILLO MD DATE OF SERVICE: 02/16/19 Discharge Plan Patient Name: ANGELES YUNG Facility: [facility]:[place] : 1940 Planned Disposition: Home Anticipated Discharge Date: Discharge Date: Expected LOS: Initial Reviewer: [email or web address] Initial Review Date: 02/15/2019 Generated: 02/16/19 5:21 pm Comments DCP- Discharge Planning Updated by [email or web address]: Janna Mitchell on 02/16/19 3:[address] Patient Name: ANGELES YUNG Admission Status: Elective Accout number: [id number] Admission Date: 02-15-2019 : 1940 Admission Diagnosis: Attending: OSCAR HERMOSILLO Current LOS: 1 Anticipated DC Date: Planned Disposition: Home Primary Insurance: MEDICARE A & B Discharge Planning Comments: CM met with patient at bedside. Patient states he lives at home with his spouse (Jolanta). He plans on returning to their home upon discharge. He states he feels safe at his home. He states he will have family drive him home upon discharge. He denies any discharge needs at this time. Patient may require walk test if 02 is needed upon discharge. CM will continue to follow and assist as needed with discharge planning / needs. Air Transportation Provider: Janna Mitchell DCPIA - Discharge Planning Initial Assessment Updated by [id number]: Janna Mitchell on 02/16/19 4:16 pm * Is the patient Alert and Oriented? Yes * How many steps to enter\exit or inside your home? * PCP RACHELL * Pharmacy [facility] * Preadmission Environment Home with Family * ADLs Independent * Equipment Walker * List name and contact numbers for known caregivers / representatives who currently or will assist patient after discharge: JOLANTA YUNG - - [phone], * Verbal permission to speak to the caregivers and representatives has been obtained from the patient. Yes * Community resources currently utilized None * Additional services required to return to the preadmission environment? No * Can the patient safely return to the preadmission environment? Yes * Has this patient been hospitalized within the prior 30 days at any hospital? No Patient Name: ANGELES YUNG Page [id number] at 1622 All edits/amendments must be made on the electronic document DICTATION DATE: 02/16/191620 RELIGION PROFESSOR: JODIE 02/16/191620 RPT#: [id number] DC DATE: STATUS: ADM IN [facility] [address] [place] [address] END OF REPORT
--- NOTE | 2019-02-16 16:24 | NUR ---
1100 PT AMBULATED WITH THERAPY, TOLERATED WELL 1300 ATE 100% LUNCH 1500BATH AND LINEN CHANGE DONE
--- NOTE | 2019-02-16 19:00 | NUR ---
REPORT RECEIVED CARE ASSUMED. INITIAL SHIFT ASSESSMENT COMPLETED SEE FLOWSHEET. ALL ALARMS SET, VERIFIED AND AUDIBLE AT NURSES STATION. MONITORED PER STANDARD CVICU PROTOCOL. PT IS AAOX4 AND ABLE TO MAKE NEEDS KNOWN. CALL LIGHT IN REACH.
--- NOTE | 2019-02-16 21:00 | NUR ---
MEDS GIVEN DOCUMENTED ON DEC. PT TEACHING DONE PT DEMONSTRATED UNDERSTANDING. HS SNACK PROVIDED PER REQUEST.
--- NOTE | 2019-02-16 21:26 | NUR ---
CALLED, SECURITY WORD VERIFIED. QUESTIONS ANSWERED UPDATE GIVEN
--- NOTE | 2019-02-16 23:00 | NUR ---
SHIFT REASSESSMENT COMPLETED SEE FLOWSHEET. A-LINE NOTED TO BE VERY POSITIONAL. THIS IS NOT A CHANGE, WAS REPORTED TO BE POSITIONAL ALL DAY. HAS NOTED TO HAVE A PERSISTANT PRODUCTIVE COUGH. NO OTHER CHANGES
[2019-02-17] VITALS (28 sets, daily range): BP systolic 83–142; BP diastolic 58–83
--- NOTE | 2019-02-17 01:00 | NUR ---
PT RESTING WELL
--- NOTE | 2019-02-17 03:00 | NUR ---
SHIFT REASSESSMENT COMPLETED SEE FLOWSHEET. NO SIGNIFICANT CHANGES. PT HAS BEEN CLIPPED AND GIVEN BATH ORDERED FOR SURGERY. LINENS CHANGED. RIGHT RADIAL A-LINE CHANGED, WAVE FORM REMAINS DAMPENED AND AT TIME IS WITH ECELLENT WAVE DEFLECTION THEN RETURNS TO DAMPENED.
--- NOTE | 2019-02-17 05:30 | NUR ---
AT BEDSIDE UPDATE GIVEN QUESTIONS ANSWERED.
--- NOTE | 2019-02-17 06:15 | NUR ---
PT LEAVING UNIT WITH DR. DAVIES VIA BED FOR SURGERY. AND SON IN ROOM AND QUESTIONS ANSWERED
--- NOTE | 2019-02-17 10:09 | NUR ---
Nutrition Follow Up: Chart reviewed. Pt to have CABG today. Diet: NPO (Pt with good po intake prior to diet change) No BM since admit Labs reviewed Meds noted including Reglan Rec advancing MICHAEL when medically feasible. RD following.
--- NOTE | 2019-02-17 14:49 | NUR ---
PT ARRIVED TO ROOM FROM O.R.
--- NOTE | 2019-02-17 17:33 | NUR ---
PT EXTUBATED AT THIS TIME
--- NOTE | 2019-02-17 18:16 | NUR ---
PT TOLERATING ICE CHIPS AND SIPS OF WATER. PAIN PILL PROVIDED REQUESTED. DR HERMOSILLO CALLED AND NOTIFIED OF EXTUBATION AND MINIMAL CHEST TUBE OUTPUT. ALSO ASKED ABOUT GETTING PT UPDRAFT TREATMENTS. NEW ORDER RECEIVED.
[2019-02-17 20:46] LABS: MAGNESIUM - SERUM 2.3 mg/dL (1.8-2.4)
[2019-02-17 20:56] LABS: POTASSIUM - SERUM 4.2 mmol/L (3.5-5.1)
--- NOTE | 2019-02-17 21:00 | NUR ---
1900 REPORT RECIEVED CARE ASSUMED. ASSESSMENT DONE SEE FLOW SHEET. VSS. GRICELDA TITRATED OFF. CRASH CART PUT IN ROOM. TPM PUT IN ROOM. TPM WIRES PUT IN ROOM. NO SIGNS OF ACUTE DISTRESS. WATER SIPS GIVEN COUGH AND DEEP BREATH. IS 1000. 2100 MEDS GIVEN PER MAR. VSS NO SIGNS OF ACUTE DISTRESS NOTED. WILL CONTINUE TO MONITOR.
--- NOTE | 2019-02-17 21:49 | NUR ---
DR HERMOSILLO INFORMED OF PT STATUS. NO NEW ORDERS GIVEN. VSS. WILL CONTINUE TO MONITOR.
--- NOTE | 2019-02-17 23:00 | NUR ---
REASSESSMENT DONE SEE FLOW SHEET. VSS. DANGLED AT BEDSIDE. NO SIGNS OF ACUTE DISTRESS NOTED WILL CONTINUE TO MONITOR.
[2019-02-18] VITALS (27 sets, daily range): BP systolic 104–148; BP diastolic 51–81
--- NOTE | 2019-02-18 01:00 | NUR ---
PT LAYING IN BED RESTING VSS NO SIGNS OF ACUTE DISTRESS NOTED WILL CONTINUE TO MONITOR.
--- NOTE | 2019-02-18 02:58 | NUR ---
REASSESSMENT DONE SEE FLOW SHEET. VSS. NO SIGNS OF ACUTE DISTRESS NOTED. COMPLETE BED BATH GIVEN. LINEN CHANGE. DRESSING CHANGE.
--- NOTE | 2019-02-18 05:00 | NUR ---
PT UP TO CHAIR. MODERATE ASSISTANCE REQUIRED. IO COLLECTED. DAILY WEIGHT COLELCTED. NO SIGNS OF ACUTE DISTRESS NOTED.
[2019-02-18 05:15] LABS: HEMATOCRIT 34.2 % (42.0-54.0); HEMOGLOBIN 11.6 g/dL (13.5-17.5); MCH 28.4 pg (26.0-34.0); MCHC 33.9 g/dL (31.0-37.0); MCV 83.8 fL (80.0-100.0); MEAN PLATELET VOLUME 9.2 fL (7.4-10.4); RBC 4.08 10x6/uL (4.20-6.10); RDW 13.7 % (11.5-14.5); WBC 11.3 10x3/uL (4.8-10.8)
[2019-02-18 05:47] LABS: ALBUMIN 2.5 g/dL (3.4-5.0); ANION GAP 12.5 mmol/L (8-16); BILIRUBIN - TOTAL 0.67 mg/dL (0.2-1.3); CALCIUM 7.9 mg/dL (8.5-10.1); CARBON DIOXIDE 25.8 mmol/L (21.0-32.0); CREATININE - SERUM 1.3 mg/dL (0.6-1.3); POTASSIUM - SERUM 4.3 mmol/L (3.5-5.1); PROTEIN - SERUM 5.7 g/dL (6.4-8.2)
--- NOTE | 2019-02-18 18:30 | NUR ---
0710-DR HERMOSILLO AT [facility]-R GILES D/C'D DIRECTED-R PATRICIA D/C'D DIRECTRED--UP IN CHAIR 1030-PHYSICAL THERAPY AT [facility]-SEE RECORD 1230-ASSISTED TO BED-PRODUCTIVE COUGH 1400-DR HERMOSILLO AT [facility]-INFORMED OF URINE OUTPUT-NO FURTHER ORDERS AT THIS TIME 1630-ASSISTED TO BEDSIDE CHAIR-SEE EMAR RECORD
--- NOTE | 2019-02-18 19:00 | NUR ---
REPORT RECEIVED CARE ASSUMED. PT SITTING UP IN CHAIR. ASSESSMENT DONE SEE FLOW SHEET. VSS. PT VERBALIZED PAIN IN LOWER BACK AND GENERALIZED BODY PAIN. NO SIGNS OF ACUTE DISTRESS NOTED.
--- NOTE | 2019-02-18 19:45 | NUR ---
DR HERMOSILLO AT BEDSIDE. ORDER FOR 12.5MG DEMEROL PRN ONE DOSE FOR PAIN 7-10.
--- NOTE | 2019-02-18 20:23 | NUR ---
FAMILY AT BEDSIDE. SPECIALTY PAD REQUESTED. VSS. QUESTIONS ANSWERED TEACHING PROVIDED. WILL CONTINUE TO MONITOR.
--- NOTE | 2019-02-18 21:17 | NUR ---
DEMEROL PULLED PER ORDER. PT VERBALIZES AND VERBALIZED HE HAS HAD MULTIPLE REACTIONS WITH SWELLING AND VOMITTING WITH PAIN MEDICATIONS. HESITANT ON TAKING ANYTHING NEW. UNALBLE TO VERIFY ALLERGIC REACTIONS. WILL PASS IN REPORT.
[2019-02-19] VITALS (24 sets, daily range): BP systolic 104–153; BP diastolic 53–85
--- NOTE | 2019-02-19 01:00 | NUR ---
2300 REASSESSMENT DONE SEE FLOW SHEET VSS NO SIGNS OF ACUTE DISTRESS NOTED. 0100 WATER PROVIDED PER PT REQUEST WILL CONITNUE TO MONITOR.
--- NOTE | 2019-02-19 02:55 | NUR ---
REASSESSMENT DONE SEE FLOW SHEET VSS NO SIGNS OF ACUTE DISTRESS NOTED WILL CONTINUE TO MONITOR.
[2019-02-19 06:10] LABS: HEMATOCRIT 27.4 % (42.0-54.0); HEMOGLOBIN 9.4 g/dL (13.5-17.5); MCH 28.7 pg (26.0-34.0); MCHC 34.3 g/dL (31.0-37.0); MCV 83.5 fL (80.0-100.0); MEAN PLATELET VOLUME 9.3 fL (7.4-10.4); RBC 3.28 10x6/uL (4.20-6.10); RDW 13.7 % (11.5-14.5)
[2019-02-19 06:50] LABS: ALBUMIN 2.1 g/dL (3.4-5.0); ANION GAP 11.9 mmol/L (8-16); BILIRUBIN - TOTAL 0.73 mg/dL (0.2-1.3); CALCIUM 7.9 mg/dL (8.5-10.1); CARBON DIOXIDE 27.4 mmol/L (21.0-32.0); CREATININE - SERUM 1.1 mg/dL (0.6-1.3); POTASSIUM - SERUM 4.3 mmol/L (3.5-5.1); PROTEIN - SERUM 5.4 g/dL (6.4-8.2)
--- NOTE | 2019-02-19 09:17 | OP ---
PATIENT NAME: ANGELES YUGN MEDICAL RECORD: [id number] :40 [facility] ADMISSION DATE:02/15/19 SURGEON: CHUCK HERMOSILLO MD DATE OF OPERATION: 02/17/2019 SURGEON: Chuck Hermosillo MD ASPHALT SURFACE HEATER OPERATOR: Isaias Hsu PROCEDURES PERFORMED: 1. Coronary artery bypass graft times 5 (free left internal mammary artery to LAD; reverse saphenous vein graft from aorta to ramus intermedius, from the side of that vein graft to the first diagonal distally, aorta to posterolateral branch circumflex coronary artery, aorta to acute marginal branch of right coronary artery). 2. Endoscopic saphenous vein harvest. PREOPERATIVE DIAGNOSIS: Coronary artery disease. POSTOPERATIVE DIAGNOSIS: Coronary artery disease. ANESTHESIA: General endotracheal anesthesia. ESTIMATED BLOOD LOSS: Total cardiopulmonary bypass with Cell Saver retransfusion. COMPLICATIONS: None. SPECIMENS: None. CONDITION: Stable. DISPOSITION: CV ICU. OPERATIVE FINDINGS: 1. Transesophageal echocardiography revealed moderate aortic stenosis with 2.5 meters per second velocity. Previous ventriculogram had only a 19-mm aortic valve gradient. 2. Good quality greater saphenous vein harvested endoscopically from right lower extremity. 3. Good quality left internal mammary artery used as a free graft in case the area proximal to the left subclavian was needed for landing zone for TVAR for descending thoracic aortic aneurysm with enlargement. 4. LAD 2.0 mm with severe disease. 5. Ramus intermedius 2.5 mm intramyocardial with severe proximal disease. 6. First diagonal 1.5 mm with severe disease. 7. Obtuse marginal 1.5 mm with severe disease. 8. Acute marginal was the largest branch of the right across the inferior wall of the right ventricle to supply the septum. There was severe right coronary artery disease. The acute marginal was a 1.5-mm vessel. 9. A 4.5-cm ascending aorta with normal wall thickness. OPERATIVE INDICATION: Coronary artery disease, carotid stenosis, ascending aortic aneurysm, descending thoracic aortic aneurysm, abdominal aortic aneurysm with enlargement. OPERATIVE REPORT [id number] ANGELES YUNG OPERATIVE PROCEDURE IN DETAIL: The patient was brought to the operating suite. General anesthesia was obtained. The patient was prepped and draped. Greater saphenous vein was harvested endoscopically in the right lower extremity. Side branches were divided with electrocautery. The vessel was ligated proximally and distally, and was removed. Side branches were tied and small thin sites were oversewn. Leg was later closed in 2 layers including Dermabond on the skin and wrapped with an elastic wrap. Median sternotomy incision was made. Subcutaneous tissue was divided by electrocautery. The sternum was divided with a saw. Left hemisternum was elevated. Left pleural cavity was entered. Left internal mammary artery and vein were taken down as pedicle graft. Heparin was given. The proximal end of the internal mammary was divided and oversewn and the distal end was clipped. The internal mammary was cannulated and perfused with papaverine solution. Hemostasis was ensured. Sternal retractor was placed. Pericardium was opened. Heparin had been previously given and activated clotting time was appropriately elevated. Aorta was cannulated. Dual stage venous cannula was inserted. Retrograde cardioplegic cannula was inserted. The patient was placed on cardiopulmonary bypass. Sites for distal anastomoses were selected. Antegrade ascending cannula was placed. The patient was cooled. Crossclamp was placed. Cardioplegia was given antegrade and retrograde and this was repeated at 15- to 20-minute intervals including down the completed vein grafts. Distal anastomoses were performed in standard technique, proximal anastomosis with single cross-clamp technique and then a single yseh-eo-nilp anastomosis. Proximal and distal anastomotic sites were inspected for bleeding and single sutures in the proximals. The patient was fully rewarmed and weaned from cardiopulmonary bypass and stable. The patient was decannulated. The cannula sites were oversewn. Protamine was given. Thorough irrigation was undertaken. Grafts lay appropriately and there was no bleeding. Drains were placed in the mediastinum with 24-Hong Konger Ned drains and two #28 chest tubes into each pleural cavity. Pericardial fat was loosely reapproximated in the midline. Left chest was evacuated and irrigated. Internal mammary harvest site was inspected for bleeding. Sternum was closed with wires. Fascia was closed. Subcutaneous tissue was closed. Skin was closed. Dermabond was placed. Needle and sponge counts were reported as correct, and the patient was taken to the ICU in stable condition. TRANSINT:[id number] Voice Confirmation ID: [id number] DOCUMENT ID: [id number] CHUCK HERMOSILLO MD at 0917 CC: GODFREY BAPTISTE M.D. and JAIMIE LOVETT MD [id number] DICTATION DATE: 02/17/19 1506 HEAD FILTER PRESS TENDER: 02/17/191942 ADM IN [place] [address] [place] [id number]
--- NOTE | 2019-02-19 10:15 | NUR ---
0915-DR HERMOSILLO AT BEDSIDE -REVIEWED CXR AND PROGRESS WITH PT AND -DISCUSSED PLAN OF CONTINUING CARE WITH PT AND -INCENTIVE SPIROMETRY [id number] TV- WITH PRODUCTIVE RESULT
--- NOTE | 2019-02-19 14:34 | NUR ---
1340-AMBULATED WITH PHYSICAL THERAPY-ASSISTED BACK TO BED-SEE EMAR RECORD
--- NOTE | 2019-02-19 16:27 | NUR ---
1500-FAMILY AT BEDSIDE-PT RESTING IN BED-PRODUCTIVE COUGH 1600-NOTED O2 THB-42-[id number] CANULA-AND INCREASED TO 3L -PT STATED VERY TIRED-VISITORS LEFT ROOM- 1615-PT APPEARS TO BE RESTING SAT 91%
--- NOTE | 2019-02-19 19:00 | NUR ---
REPORT RECEIVED CARE ASSUMED. ASSESSMENT DONE SEE FLOW SHEET VSS. PT DRINKING MAG CITRATE. TEACHING PROVIDED. WILL CONTINUE TO MONITOR.
--- NOTE | 2019-02-19 20:15 | NUR ---
MED GIVEN PER MAR PER FAMILY REQUEST. WILL CONITNUE TO MONITOR.
--- NOTE | 2019-02-19 20:40 | NUR ---
MEDS GIVEN PER MAR VSS NO DIFFICULTY SWALLOWING NOTED WILL CONTINUE TO MONITOR.
--- NOTE | 2019-02-19 22:49 | NUR ---
REASSESSMENT COMPLETE VSS. NO SIGNS OF ACUTE DISTRESS NOTED.
[2019-02-20] VITALS (20 sets, daily range): BP systolic 102–136; BP diastolic 54–83
--- NOTE | 2019-02-20 01:00 | NUR ---
WATER PROVIDED PER REQUEST VSS WILL CONTINUE TO MONITOR.
--- NOTE | 2019-02-20 05:00 | NUR ---
COMPLETE BED BATH. LINEN CHANGE. CHLOROHEX BATH. VSS. PT AMBULATED TO CHAIR MINIMAL ASSISTANCE GIVEN. NO SING O FACUTE DISTRESS NOTED WILL CONTINUE TO MONITOR.
[2019-02-20 05:38] LABS: HEMATOCRIT 26.7 % (42.0-54.0); HEMOGLOBIN 9.1 g/dL (13.5-17.5); MCH 28.3 pg (26.0-34.0); MCHC 34.1 g/dL (31.0-37.0); MCV 82.9 fL (80.0-100.0); MEAN PLATELET VOLUME 9.4 fL (7.4-10.4); RBC 3.22 10x6/uL (4.20-6.10); RDW 13.4 % (11.5-14.5); WBC 13.4 10x3/uL (4.8-10.8)
[2019-02-20 05:57] LABS: ALBUMIN 2.1 g/dL (3.4-5.0); ALKALINE PHOSPHATASE 65 U/L (46-116); ALT (SGPT) 18 U/L (10-68); BILIRUBIN - TOTAL 0.48 mg/dL (0.2-1.3); CALC OSMOLALITY 267 mosm/kg (275-300); CALCIUM 8.2 mg/dL (8.5-10.1); CARBON DIOXIDE 27.7 mmol/L (21.0-32.0); CHLORIDE - SERUM 94 mmol/L (98-107); CREATININE - SERUM 0.9 mg/dL (0.6-1.3); GLUCOSE 127 mg/dL (74-106); POTASSIUM - SERUM 4.3 mmol/L (3.5-5.1); PROTEIN - SERUM 5.8 g/dL (6.4-8.2); SODIUM 130 mmol/L (136-145); UREA NITROGEN 27 mg/dL (7-18); eGFR NON AFRICAN AMERICAN 86 mL/min (90-120)
--- NOTE | 2019-02-20 17:53 | NUR ---
0715-RECIEVED AWAKE AND ALERT-PT UP IN CHAIR-SR MONITOR 0830-AMBULATED WITH PT 0930-ASSISTED TO REST ROOM 1130-DR HERMOSILLO AT [facility] D/C'D PER DR HERMOSILLO 1500-DR SANDOVAL AT BEDSIDE SPOKE WITH PT AND
--- NOTE | 2019-02-20 19:00 | NUR ---
REPORT RECEIVED CARE ASSUMED. ASSESSMENT DONE SEE FLOW SHEET VSS NO SIGNS OF ACUTE DISTRESS NOTED WILL CONTINUE TO MONITOR.
--- NOTE | 2019-02-20 21:00 | NUR ---
MEDS GIVEN PER DEC. NO DIFFUCLTY SWALLOWING NOTED. VSS WILL CONTINUE TO MONITOR.
--- NOTE | 2019-02-20 22:59 | NUR ---
REASSESSMENT DONE SEE FLOW SHEET VSS.
[2019-02-21] VITALS (24 sets, daily range): BP systolic 100–139; BP diastolic 49–89
--- NOTE | 2019-02-21 02:59 | NUR ---
0100 WATER PROVIDED PER PT REQUEST. VSS NO SIGNS OF ACUTE DISTRESS NOTED. 0259 REASSESSMENT DONE SEE FLOW SHEET VSS.
--- NOTE | 2019-02-21 05:00 | NUR ---
IO COLLECTED DAILY WEIGHT COLLECTED. COMPLETE BED BATH. DAILY WEIGHT TAKEN. COMPLETE LINEN CHANGE PROVIDED. VSS.
[2019-02-21 06:05] LABS: ALKALINE PHOSPHATASE 74 U/L (46-116); BILIRUBIN - TOTAL 0.49 mg/dL (0.2-1.3); CALC OSMOLALITY 267 mosm/kg (275-300); CARBON DIOXIDE 27.4 mmol/L (21.0-32.0); CHLORIDE - SERUM 96 mmol/L (98-107); CREATININE - SERUM 0.9 mg/dL (0.6-1.3); GLUCOSE 133 mg/dL (74-106); POTASSIUM - SERUM 4.1 mmol/L (3.5-5.1); SODIUM 131 mmol/L (136-145); UREA NITROGEN 21 mg/dL (7-18); eGFR NON AFRICAN AMERICAN 86 mL/min (90-120)
[2019-02-21 06:06] LABS: HEMATOCRIT 25.7 % (42.0-54.0); HEMOGLOBIN 8.8 g/dL (13.5-17.5); MCH 28.2 pg (26.0-34.0); MCHC 34.2 g/dL (31.0-37.0); MCV 82.4 fL (80.0-100.0); MEAN PLATELET VOLUME 9.5 fL (7.4-10.4); RBC 3.12 10x6/uL (4.20-6.10); RDW 13.6 % (11.5-14.5); WBC 10.5 10x3/uL (4.8-10.8)
[2019-02-21 06:12] LABS: ALT (SGPT) 23 U/L (10-68)
--- NOTE | 2019-02-21 07:10 | NUR ---
ASSESSMENT COMPLETE PER FLOWSHEET. NO CO AT TIME.
--- NOTE | 2019-02-21 08:30 | NUR ---
DR HERMOSILLO HERE SEEING PATIENT.
--- NOTE | 2019-02-21 12:28 | NUR ---
Nutrition Follow Up Renal ADA diet ordered. Pt reports not eating well, RD observed about 25% intake Reviewed labs: Will liberalize diet to Regular. Pt agrees this may increase po intake. Liberalize diet due to pt is not diabetic and K+/Phos WNL, advanced age, and poor po intake Add Ensure daily Discussed the importance of protein RD following
--- NOTE | 2019-02-21 13:44 | NUR ---
AT BEDSIDE. PT UP AMBULATING WITH KEVIN PHYSICAL CLINICAL MANAGER HOME CARE.
--- NOTE | 2019-02-21 15:00 | NUR ---
DR HERMOSILLO HERE SEEING PATIENT.
--- NOTE | 2019-02-21 18:00 | NUR ---
SITTING UP IN CHAIR VOICES NO CO AT TIME.
--- NOTE | 2019-02-21 19:10 | NUR ---
REC'D TO CARE, PT BACK IN BED, NO SIGN OF DISTRESS. RT AT BS FOR RESP TX. VSS. INCISION/SKIN ASSESSMENT PER FLOWSHEET. PT IS ALERT AND ORIENTED, DENIES NEEDS.. ALARMS ON AND C/L IN REACH.
--- NOTE | 2019-02-21 20:13 | NUR ---
NO VISITORS - ADMIN PO MEDS PER MD ORDER. ALARMS ON AND C/L IN REACH.
--- NOTE | 2019-02-21 23:06 | NUR ---
REASSESSMENT PER FLOWSHEET, NO ACUTE CHANGES. VSS. PT DENIES NEEDS. ALARMS ON AND C/L IN REACH.
[2019-02-22] VITALS (23 sets, daily range): BP systolic 97–148; BP diastolic 42–82
--- NOTE | 2019-02-22 00:54 | NUR ---
PT INDEPENDENT WITH I.S. VSS. DENIES NEEDS.
--- NOTE | 2019-02-22 03:11 | NUR ---
REASSESSMENT PER FLOWSHEET, NO ACUTE CHANGES. GIVEN WATER AND CRANBERRY JUICE PER REQUEST. ALARMS ON AND C/L IN REACH.
--- NOTE | 2019-02-22 03:50 | NUR ---
COMPLETED BATH WITH HIBICLENS PER POLICY.
--- NOTE | 2019-02-22 05:02 | NUR ---
TO XRAY VIA W/C.
[2019-02-22 05:20] LABS: HEMATOCRIT 26.8 % (42.0-54.0); HEMOGLOBIN 9.2 g/dL (13.5-17.5); MCHC 34.3 g/dL (31.0-37.0); MCV 81.5 fL (80.0-100.0); MEAN PLATELET VOLUME 9.2 fL (7.4-10.4); RBC 3.29 10x6/uL (4.20-6.10); RDW 13.2 % (11.5-14.5); WBC 10.8 10x3/uL (4.8-10.8)
--- NOTE | 2019-02-22 05:23 | NUR ---
BACK TO ROOM AND UP IN CHAIR. C/L IN REACH.
[2019-02-22 05:37] LABS: ALBUMIN 2.2 g/dL (3.4-5.0); ALKALINE PHOSPHATASE 86 U/L (46-116); ALT (SGPT) 42 U/L (10-68); CALC OSMOLALITY 268 mosm/kg (275-300); CALCIUM 8.3 mg/dL (8.5-10.1); CHLORIDE - SERUM 96 mmol/L (98-107); CREATININE - SERUM 0.9 mg/dL (0.6-1.3); GLUCOSE 130 mg/dL (74-106); POTASSIUM - SERUM 3.7 mmol/L (3.5-5.1); SODIUM 132 mmol/L (136-145); UREA NITROGEN 19 mg/dL (7-18); eGFR NON AFRICAN AMERICAN 86 mL/min (90-120)
--- NOTE | 2019-02-22 08:59 | NUR ---
PT ASSISTED UP TO TOILET.
--- NOTE | 2019-02-22 09:30 | NUR ---
PHYSICAL THERAPIST BY TO WALK PT. PT ASKED TO WAIT AND LET HIM REST FOR A COUPLE OF HOURS. THERAPIST WILL BE BACK BEFORE LUNCH TO WALK
--- NOTE | 2019-02-22 17:26 | NUR ---
PT UP IN CHAIR WATCHING TELEVISION. HAS LEFT FOR THE EVENING. PT DENIES ANY ADDITIONAL NEEDS AT THIS TIME. CALL LIGHT IN REACH.
--- NOTE | 2019-02-22 20:50 | NUR ---
ADMIN PO MEDS PER MD ORDERS. VSS. PT DENIES NEEDS.
--- NOTE | 2019-02-22 21:31 | NUR ---
PT C/O INDEGESTION, DR. PEREZ PAGED AND NOTIFIED, NEW ORDER REC'D. NO CHANGE IN EKG AND NO C/O PAIN.
--- NOTE | 2019-02-22 21:50 | NUR ---
UP TO BR - VOIDED, NO BM. BACK TO BED. VSS. WILL CONT CLOSE MONITORING.
--- NOTE | 2019-02-22 22:20 | NUR ---
PT REPORTS "A LITTLE BETTER, BUT NOW I HAVE THE HICK UPS". WILL CONT CLOSE MONITORING.
--- NOTE | 2019-02-22 23:12 | NUR ---
REASSESSMENT PER FLOWSHEET, NO ACUTE CHANGES. RT AT BS FOR RESP TX. STRONG COUGH, USING YANKAUER. DENIES NEEDS. ALARMS ON AND C/L IN REACH.
[2019-02-23] VITALS (14 sets, daily range): BP systolic 102–146; BP diastolic 56–80
--- NOTE | 2019-02-23 01:10 | NUR ---
RESTING WITH EYES CLOSED, VSS. NO SIGN OF DISTRESS.
--- NOTE | 2019-02-23 03:10 | NUR ---
REASSESSMENT PER FLOWSHEET, NO ACUTE CHANGES. PT RESTING QUIETLY AT THIS TIME. VSS. DENIES PAIN OR NEEDS. C/L IN REACH. ALARMS ON.
--- NOTE | 2019-02-23 04:19 | NUR ---
PT TO XRAY VIA W/C, THEN BACK IN ROOM AND UP IN CHAIR.
--- NOTE | 2019-02-23 06:13 | NUR ---
UP IN CHAIR, DENIES NEEDS.
[2019-02-23 07:51] LABS: BASOPHILS 0.2 % (0-2); EOSINOPHILS 1.9 % (0-7); HEMATOCRIT 28.3 % (42.0-54.0); HEMOGLOBIN 9.9 g/dL (13.5-17.5); LYMPHOCYTES 16.1 % (15-50); MCV 80.2 fL (80.0-100.0); MEAN PLATELET VOLUME 8.9 fL (7.4-10.4); MONOCYTES 18.2 % (2-11); NEUTROPHILS 62.6 % (40-80); RBC 3.53 10x6/uL (4.20-6.10); RDW 13.6 % (11.5-14.5); WBC 12.3 10x3/uL (4.8-10.8)
[2019-02-23 07:59] LABS: CALC OSMOLALITY 260 mosm/kg (275-300); CALCIUM 8.6 mg/dL (8.5-10.1); CHLORIDE - SERUM 95 mmol/L (98-107); CREATININE - SERUM 0.9 mg/dL (0.6-1.3); GLUCOSE 120 mg/dL (74-106); POTASSIUM - SERUM 3.9 mmol/L (3.5-5.1); SODIUM 129 mmol/L (136-145); UREA NITROGEN 15 mg/dL (7-18); eGFR NON AFRICAN AMERICAN 86 mL/min (90-120)
[2019-02-23 08:01] LABS: PLATELET COUNT 423 10x3/uL (130-400)
--- NOTE | 2019-02-23 10:06 | NUR ---
Nutrition Follow Up: Regular diet with 75,50,50% intake of meals yesterday Pt is drinking Ensure and Boost Weight 197.9lb Encouraged good po intake. Provided recommendations on supplemental drinks for home until pt able to eat adequately. RD following per protocol
--- NOTE | 2019-02-23 10:39 | TEE ---
PATIENT:ANGELES YUNG [place] MEDICAL RECORD: [id number] LOCATION:[facility] AGE OF PATIENT: 79 ADMISSION DATE: 02/15/19 SEX: M REFERRING PHYSICIAN: INTERPRETING PHYSICIAN: CLAUDE PAT MD TRANSESOPHAGEAL ECHOCARDIOGRAM Date: 02/17/19 WILFRID CHARGE Y INDICATIONS: CABG PREMEDICATIONS: PATIENT'S RESPONSE PROCEDURE DOPPLER MEASUREMENTS: LVIT LA PA RA LVOT 2.5 RVOT Asc. Ao AV Gradient Peak 24.3 AV Mean 11.3 AV Area 1.1 MV Gradient Peak MV Mean MV Area INTERPRETATION: LVd: 4.2 cm LVs: 2.3 cm Doppler: 2-D: COLOR FLOW DOPPLER NORMAL SALINE STUDY: MISCELLANOUS: DIAGNOSIS: PLAN: Senior User Experience Architect:Roni Dia Kennel Supervisor: Parker KIRKLAND COMMENTS: DATE OF SERVICE: 02/18/2019 PROCEDURE: Transesophageal echo evaluation of valvular structures during bypass surgery. FINDINGS: 1. Left ventricular chamber size is within normal limits. Left ventricular systolic function is mildly depressed. Overall ejection fraction 40%. 2. Left atrium, right atrium, and right ventricular chamber sizes are mildly TRANSESOPHAGEAL ECHOCARDIOGRAM REPORT [id number] OSCAR YUNG. 3. Valvular structures: Aortic valve demonstrates calcific aortic sclerosis, but no significant aortic stenosis is present. The remaining valvular structures have normal structure and motion. 4. Doppler interrogation elsewise reveals trace mitral regurgitation. No other valvular insufficiency or stenosis. 5. No evidence of pericardial effusion or left ventricular thrombus. TRANSINT:[id number] Voice Confirmation ID: [id number] DOCUMENT ID: [id number] at 1039 CC: [id number] DICTATION DATE: 02/18/19 1220 VALIDATION MANAGER: 02/19/19 0724 ADM IN [place] [id number] [place] [address]
--- NOTE | 2019-02-23 13:56 | NUR ---
DR LOVETT AT BEDSIDE SPEAKING WITH PT AND .
--- NOTE | 2019-02-23 14:25 | NUR ---
PT ASSISTED TO BED FROM CHAIR REQUESTED BY DR HERMOSILLO. WILL BE REMOVING TPM WIRE.
[2019-02-23] MEDS ORDERED: PERCOCET 5-3251 TAB PO (14:38)
[2019-02-23] MEDS ORDERED: HEMOCYTE PLUS C1 CAP PO (14:49)
[2019-02-23] MEDS ORDERED: PLAVIX75 MG PO (14:49)
[2019-02-23] MEDS ORDERED: K-DUR20 MEQ PO (14:50)
[2019-02-23] MEDS ORDERED: COLACE100 MG PO (14:51)
--- NOTE | 2019-02-23 16:07 | NUR ---
FOLLOW UP APPT MADE WITH DR LOVETT FOR 03/14 @11:30 PT ALREADY HAD CARDIOLOGY APPT SET WITH ONDINA BATISTA APRN ON 03/10 @1:30
--- NOTE | 2019-02-23 16:26 | NUR ---
CVL DC'D WITH THE CATHETER TIP INTACT. DRESSING C/D/I.
--- NOTE | 2019-02-23 17:45 | NUR ---
DISCHARGE INSTRUCTIONS REVIEWED WITH PATIENT AND . ALL F/U APPOINTMENTS REVIEWED.
--- NOTE | 2019-02-23 19:20 | MORECARE ---
CASE MANAGEMENT DISCHARGE SUMMARY PATIENT: ANGELES YUNG UNIT: [id number] ADM DATE: 02/15/19 AGE: 79 : [birth year] SEX: M ROOM/BED: D[facility] [place] AUTHOR: SEAN,DOC PHYSICIAN: REFERRING PHYSICIAN: OSCAR HERMOSILLO MD DATE OF SERVICE: 02/23/19 Discharge Plan Patient Name: ANGELES YUNG Facility: [facility]:[place] : 1940 Planned Disposition: Home Anticipated Discharge Date: Discharge Date: 02/23/2019 Expected LOS: Initial Reviewer: [email or web address] Initial Review Date: 02/15/2019 Generated: 02/23/19 8:19 pm Comments DCP- Discharge Planning Updated by [email or web address]: Janna Mitchell on 02/23/19 6:[address] Patient Name: ANGELES YUNG Encounter No: [id number] : 1940 Primary Insurance: MEDICARE A & B Anticipated DC Date: Planned Disposition: Home External Planned Provider: : Mindi/Atif PÉREZ 02/23/19 @ 1355 DCP follow-up note: Patient and family in agreement with discharge plan. No changes to plan. Case management will follow and assist as needed. Janna Mitchell DCP- Discharge Planning Updated by [email or web address]: Janna Mitchell on 02/16/19 3:[address] Patient Name: ANGELES YUNG Admission Status: Elective Accout number: [id number] Admission Date: 02-15-2019 : 1940 Admission Diagnosis: Attending: OSCAR HERMOSILLO Current LOS: 1 Anticipated DC Date: Planned Disposition: Home Primary Insurance: MEDICARE A & B Discharge Planning Comments: CM met with patient at bedside. Patient states he lives at home with his spouse (Jolanta). He plans on returning to their home upon discharge. He states he feels safe at his home. He states he will have family drive him home upon discharge. He denies any discharge needs at this time. Patient may require walk test if 02 is needed upon discharge. CM will continue to follow and assist as needed with discharge planning / needs. Primary Products Inspectors: Janna Mitchell DCPIA - Discharge Planning Initial Assessment Updated by [email or web address]: Janna Mitchell on 02/16/19 4:16 pm * Is the patient Alert and Oriented? Yes * How many steps to enter\exit or inside your home? * PCP RACHELL * Pharmacy [facility] * Preadmission Environment Home with Family * ADLs Independent * Equipment Walker * List name and contact numbers for known caregivers / representatives who currently or will assist patient after discharge: JOLANTA YUNG - - [phone], * Verbal permission to speak to the caregivers and representatives has been obtained from the patient. Yes * Community resources currently utilized None * Additional services required to return to the preadmission environment? No * Can the patient safely return to the preadmission environment? Yes * Has this patient been hospitalized within the prior 30 days at any hospital? No Coverage Notice Reviewer: [id number] - Janna Mitchell Notice Issued Date-Time: 02/23/2019 15:55 Notice Type: IM Discharge Notice Notice Delivered To: Patient Relationship to Patient: Self Rubber Grinder Name: Delivery Method: HAND - Hand Delivered Blanche Days: Prior Verbal Notification: Recipient Understood Notice: Yes Recipient Signature: Yes Med Rec Note Co-signed by Attending: Coverage Notice Comment: Last DP export: 02/16/19 3:22 p Patient Name: ANGELES YUNG Page 46019 at 1920 All edits/amendments must be made on the electronic document DICTATION DATE: 02/23/191918 COMB MACHINE OPERATOR: JODIE 02/23/191918 RPT#: [id number] DC DATE:02/23/19 STATUS: DIS IN [facility] [address] [place] [address] END OF REPORT
== END 2019-02-23 17:55 | disposition home or self-care (01) | DRG 236 ==
LOC: D.CVICU 02-15 05:00 → D.SDCHOLD 02-15 05:00 → D.CVICU 02-15 09:34
PROVIDERS: ADMIT Thoracic Surgery (Cardiothoracic Vascular Surgery); ATTEND Thoracic Surgery (Cardiothoracic Vascular Surgery)
PROC: 03UL0JZ Supplement Left Internal Carotid Artery with Synthetic Substitute, Open Approach (ICD-10-PCS; 2019-02-15)
PROC: 03CL0ZZ Extirpation of Matter from Left Internal Carotid Artery, Open Approach (ICD-10-PCS; principal; 2019-02-15 07:30)
PROC: 02100Z9 Bypass Coronary Artery, One Artery from Left Internal Mammary, Open Approach (ICD-10-PCS; 2019-02-17)
PROC: 021309W Bypass Coronary Artery, Four or More Arteries from Aorta with Autologous Venous Tissue, Open Approach (ICD-10-PCS; 2019-02-17)
PROC: 06BP4ZZ Excision of Right Saphenous Vein, Percutaneous Endoscopic Approach (ICD-10-PCS; 2019-02-17)
PROC: B24BZZ4 Ultrasonography of Heart with Aorta, Transesophageal (ICD-10-PCS; 2019-02-17)
PROC: 5A1221Z Performance of Cardiac Output, Continuous (ICD-10-PCS; 2019-02-17)
DX: I25.10 Atherosclerotic heart disease of native coronary artery without angina pectoris (principal); I65.22 Occlusion and stenosis of left carotid artery; R00.1 Bradycardia, unspecified; E78.5 Hyperlipidemia, unspecified; E03.9 Hypothyroidism, unspecified; I10 Essential (primary) hypertension; I71.4 Abdominal aortic aneurysm, without rupture; I71.2 Thoracic aortic aneurysm, without rupture

== ENCOUNTER 2019-02-28 01:39 | Emergency (ER) | payer MEDICARE, OTHER ==
[~2019-02-28 01:39] MED LIST changes: +COLACE100 MG PO; +HEMOCYTE PLUS C1 CAP PO; +K-DUR20 MEQ PO; +OMEPRAZOLE20 M1 PO; +PERCOCET 5-3251 TAB PO; +PLAVIX75 MG PO; +RED YEAST RICE600 MG PO; +VITAMIN B-121000 MCG PO; +VITAMIN D31000 UNIT PO
[2019-02-28 02:23] LABS: BASOPHILS 0.3 % (0-2); EOSINOPHILS 2.2 % (0-7); HEMATOCRIT 30.2 % (42.0-54.0); HEMOGLOBIN 10.4 g/dL (13.5-17.5); IMMATURE GRANULOCYTES 0.8 % (0-5); LYMPHOCYTES 24.1 % (15-50); MCH 27.7 pg (26.0-34.0); MCHC 34.4 g/dL (31.0-37.0); MCV 80.3 fL (80.0-100.0); MEAN PLATELET VOLUME 8.6 fL (7.4-10.4); MONOCYTES 9.1 % (2-11); NEUTROPHILS 63.5 % (40-80); RBC 3.76 10x6/uL (4.20-6.10); RDW 13.5 % (11.5-14.5); WBC 12.9 10x3/uL (4.8-10.8)
[2019-02-28 02:24] LABS: PLATELET COUNT 661 10x3/uL (130-400)
[2019-02-28 02:46] LABS: ALBUMIN 2.5 g/dL (3.4-5.0); ALKALINE PHOSPHATASE 127 U/L (46-116); ALT (SGPT) 31 U/L (10-68); BILIRUBIN - TOTAL 0.57 mg/dL (0.2-1.3); CALC OSMOLALITY 260 mosm/kg (275-300); CALCIUM 8.2 mg/dL (8.5-10.1); CARBON DIOXIDE 25.1 mmol/L (21.0-32.0); CHLORIDE - SERUM 92 mmol/L (98-107); GLUCOSE 126 mg/dL (74-106); POTASSIUM - SERUM 4.4 mmol/L (3.5-5.1); PROTEIN - SERUM 6.2 g/dL (6.4-8.2); SODIUM 128 mmol/L (136-145); UREA NITROGEN 19 mg/dL (7-18); eGFR NON AFRICAN AMERICAN 76 mL/min (90-120)
[2019-02-28 02:55] LABS: CKMB 0.7 U/L (0.0-3.6); CREATINE KINASE 43 UL (21-232); TROPONIN-I 0.026 ng/mL (0.000-0.060)
[2019-02-28] MEDS ORDERED: NEURONTIN 300300 MG PO (05:02)
== END 2019-02-28 05:10 | disposition home or self-care (01) ==
LOC: D.ER 01:39
PROVIDERS: Family Medicine
DX: R06.6 Hiccough (principal); E87.1 Hypo-osmolality and hyponatremia

== ENCOUNTER → 2019-03-14 13:09 | Outpatient (CLI) | payer MEDICARE, OTHER ==
[2019-02-28 01:44] VITALS: BMI 25.1
[~2019-03-14 13:09] MED LIST changes: +NEURONTIN 300300 MG PO
[2019-03-14 13:51] LABS: HEMATOCRIT 37.1 % (42.0-54.0); HEMOGLOBIN 12.1 g/dL (13.5-17.5); MCHC 32.6 g/dL (31.0-37.0); MCV 82.8 fL (80.0-100.0); MEAN PLATELET VOLUME 8.7 fL (7.4-10.4); RBC 4.48 10x6/uL (4.20-6.10); RDW 14.4 % (11.5-14.5); WBC 6.9 10x3/uL (4.8-10.8)
[2019-03-14 14:03] LABS: ALBUMIN 3.1 g/dL (3.4-5.0); ANION GAP 14.8 mmol/L (8-16); BILIRUBIN - TOTAL 0.4 mg/dL (0.2-1.3); CALCIUM 8.7 mg/dL (8.5-10.1); CARBON DIOXIDE 25.2 mmol/L (21.0-32.0); CREATININE - SERUM 1.1 mg/dL (0.6-1.3); PROTEIN - SERUM 6.9 g/dL (6.4-8.2)
== END | disposition home or self-care (01) ==
LOC: D.LAB 13:09
PROVIDERS: ATTEND Thoracic Surgery (Cardiothoracic Vascular Surgery)
DX: D64.9 Anemia, unspecified (principal); J90 Pleural effusion, not elsewhere classified

== ENCOUNTER → 2019-04-05 14:53 | Outpatient (CLI) | payer MEDICARE, OTHER ==
[2019-02-28 01:44] VITALS: BMI 25.1
== END | disposition home or self-care (01) ==
LOC: D.CT 14:53
PROVIDERS: ATTEND Thoracic Surgery (Cardiothoracic Vascular Surgery)
DX: G81.94 Hemiplegia, unspecified affecting left nondominant side (principal); R20.2 Paresthesia of skin

== ENCOUNTER → 2019-07-28 12:12 | Outpatient (CLI) | payer MEDICARE, OTHER ==
[2019-02-28 01:44] VITALS: BMI 25.1
== END | disposition home or self-care (01) ==
LOC: D.CT 12:12
PROVIDERS: ATTEND Thoracic Surgery (Cardiothoracic Vascular Surgery)
DX: I71.4 Abdominal aortic aneurysm, without rupture (principal)

== ENCOUNTER → 2020-02-02 12:30 | Outpatient (CLI) | payer MEDICARE, OTHER ==
[2019-02-28 01:44] VITALS: BMI 25.1
== END | disposition home or self-care (01) ==
LOC: D.CT 12:30
PROVIDERS: ATTEND Thoracic Surgery (Cardiothoracic Vascular Surgery)
DX: I71.4 Abdominal aortic aneurysm, without rupture (principal); I65.23 Occlusion and stenosis of bilateral carotid arteries

== ENCOUNTER → 2020-06-15 09:41 | Outpatient (CLI) | payer MEDICARE, OTHER ==
[2019-02-28 01:44] VITALS: BMI 25.1
--- NOTE | ~2020-06-15 | EC ---
PATIENT:ANGELES YUNG DATE OF SERVICE: 06/15/20 SEX: M MEDICAL RECORD: [id number] DATE OF : 40 [facility] AGE OF PATIENT: 80 ADMISSION DATE: 06/15/20 REFERRING PHYSICIAN: INTERPRETING PHYSICIAN: ANDRES LOZANO MD ECHOCARDIOGRAM REPORT ECHO CHARGES 4 ECHO COMPLETE Date: 06/15/20 CLINICAL DIAGNOSIS: CAD ECHOCARDIOGRAPHIC MEASUREMENTS (adult normal given) AC root (d.<3.7cm) 3.2 cm LV Septum d (<1.2 cm> 1.0 cm Valve Excursion 1.3 cm LV Septum (systole) 1.1 cm Left Atria (s.<4.0cm> 3.8 cm LVPW d(<1.2cm) 0.9 cm RV (d.<2.3cm) 3.2 cm LVPW (sytole) 1.4 cm LV diastole(<5.6CM) 5.6 cm MV E-F(>70mm/sec) cm LV systole 4.2 cm LVOT Diameter 2.1 cm MV exc.(>10mm) cm Est.ejection fraction (50-75%) % DOPPLER: LVIT cm/sec A 97 cm/sec E 49 cm/sec LA cm/sec RVSP 32.3 mmHg LVOT 75 cm/sec AOP1/2T m/s Asc. Ao 154 cm/sec RVOT 42 cm/sec RA cm/sec PA 43 cm/sec AV Gradient Peak 9.5 mmHg AV Mean 6.4 mmHg AV Area 1.6 cm MV Gradient Peak 4.2 mmHg MV Mean 1.4 mmHg MV Area cm COMMENTS: Pediatric Dental Assistant: Mark FELIX Disposition Clerk: 4 Dr. Lozano TAPE# PACS Pericardial Effusion N DATE OF SERVICE: PROCEDURE: Transthoracic echocardiogram. FINDINGS: 1. Left ventricle shows normal size, shape, structure, and function. Ejection fraction of 55%. There is no evidence of regional wall motion abnormalities. There is evidence of mild diastolic dysfunction. 2. Left atrium is normal size, shape, structure, and function. 3. The aortic valve appears thickened with reduced cuspal separation. We did ECHOCARDIOGRAM REPORT [id number] ANGELES YUNG not demonstrate on this study significant velocity elevation across the aortic valve, but by 2D estimation there is at least kysl-eg-uanjnyaf aortic stenosis. 4. Mitral valve has trace mitral regurgitation. 5. Tricuspid valve has mild tricuspid regurgitation. Right ventricular systolic pressure at 32 mmHg. 6. Right ventricle is mildly enlarged. 7. The right atrium is normal size, shape, structure, and function. 8. Pulmonic valve is normal. 9. There is no significant effusion. IMPRESSION: The patient potentially has at least moderate aortic stenosis. This study really was not clear enough to delineate the severity of the stenosis. Depending on clinical situation, a transesophageal echocardiogram may be helpful. TRANSINT:[id number] Voice Confirmation ID: [id number] DOCUMENT ID: [id number] ANDRES LOZANO MD CC: [id number] DICTATION DATE: 06/16/20 1043 MONORAIL HELPER: 06/16/20 160[address] [facility] CLI 06/15/20 [address] [place] [address]
== END | disposition home or self-care (01) ==
LOC: D.ECHO 09:41
PROVIDERS: ATTEND Thoracic Surgery (Cardiothoracic Vascular Surgery)
DX: I25.10 Atherosclerotic heart disease of native coronary artery without angina pectoris (principal)

== ENCOUNTER 2020-07-11 07:26 | Day surgery (SDC) | payer MEDICARE, OTHER ==
[~2020-07-11] VITALS: Ht 185.4 cm; Wt 93.6 kg
[2020-07-11 07:45] LABS: BASOPHILS 0.5 % (0-2); EOSINOPHILS 2.3 % (0-7); HEMATOCRIT 45.6 % (42.0-54.0); HEMOGLOBIN 14.9 g/dL (13.5-17.5); IMMATURE GRANULOCYTES 0.1 % (0-5); LYMPHOCYTES 42.6 % (15-50); MCH 28.3 pg (26.0-34.0); MCHC 32.7 g/dL (31.0-37.0); MCV 86.5 fL (80.0-100.0); MONOCYTES 11.2 % (2-11); NEUTROPHILS 43.3 % (40-80); RBC 5.27 10x6/uL (4.20-6.10); RDW 14.2 % (11.5-14.5); WBC 7.5 10x3/uL (4.8-10.8)
[2020-07-11 07:46] LABS: PLATELET COUNT 242 10x3/uL (130-400)
[2020-07-11 07:53] LABS: ANION GAP 10.1 mmol/L (8-16); CALCIUM 9.2 mg/dL (8.5-10.1); CARBON DIOXIDE 29.2 mmol/L (21.0-32.0); CREATININE - SERUM 1.5 mg/dL (0.6-1.3); POTASSIUM - SERUM 4.3 mmol/L (3.5-5.1)
[2020-07-11] MEDS ORDERED: LISINOPRIL10 MG PO (07:53)
[2020-07-11 08:00] LABS: INR 1.38 (0.85-1.17); PROTIME 16.8 SECONDS (11.6-15.0)
[2020-07-11 08:01] VITALS: BP 165/102; Ht 185.4 cm; Wt 93.6 kg
[2020-07-11 08:01] LABS: APTT 105.4 SECONDS (22.8-39.4)
--- NOTE | 2020-07-11 08:07 | NUR ---
DR. WILKINS CALLED AND STATES THAT PROCEDURE WILL NOT BE DONE TODAY. SAYS TO SEND PT HOME AND CONTINUE ANTICOAGULANTS. WILL DC SHORTLY.
== END 2020-07-11 08:14 | disposition home or self-care (01) ==
LOC: D.SP 07:26 → D.RAD 10:00
PROVIDERS: Specialist; ATTEND Thoracic Surgery (Cardiothoracic Vascular Surgery)
DX: I65.23 Occlusion and stenosis of bilateral carotid arteries (principal); I71.2 Thoracic aortic aneurysm, without rupture; I25.10 Atherosclerotic heart disease of native coronary artery without angina pectoris; Z53.9 Procedure and treatment not carried out, unspecified reason

== ENCOUNTER 2020-07-27 13:42 | Inpatient (IN) | payer MEDICARE, OTHER ==
[~2020-07-27] VITALS: Ht 185.4 cm; Wt 97.5 kg
--- NOTE | ~2020-07-27 | HEMODYNAMI ---
PATIENT:ANGELES YUNG MEDICAL RECORD: [id number] : 40 [facility]2 ADMISSION DATE: 08/06/20 Generatedon:08/06/202011:20 Patient name: ANGELES YUNG Patient #: [id number] SSN: : 1940 Date of study: 08/06/2020 Page: Of Hemodynamic Procedure Report Patient Data Patient Demographics Procedure consent was obtained First Name: ANGELES Gender: Male Last Name: AGA : 1940 Middle Initial: MARILYN Age: 80 year(s) Patient #: [id number] Race: Unknown Additional ID: [id number] Contact details [address]: [address] [place] [address] State: [place] City: [place] Zip code: [address] Past Medical History Allergies Allergen Reaction Date Comments Reported Other allergy 02/08/2019 PCN V Potassium, morphine Penicillins 08/06/2020 Other allergy 08/06/2020 sruthi-vejarod wilhelm Admission Admission Data Admission Date: 08/06/2020 Admission Time: 6:30 Room #: D.2302 Height (in.): 73 BSA: 2.21 (m2) Height (cm.): 185.42 BMI: 27.97 (kg/m2) Weight (lbs.): 212 Weight (kg.): 96.16 Procedure Procedure Types Cath Procedure Peripheral Cath Diagnostic Procedure Commercial Electrician Peripheral Procedures Peripheral vascular Intervention Stent Carotid Stent Procedure Description Procedure Date Procedure Date: 08/06/2020 Procedure Start Time: 10:02 Procedure Staff Name Function Aleksandr Gregorio MD Performing Physician Namrata Trujillo RT Field Crops Harvest Machine Operator Carmen White RN Nurse Audrey TORRES RN Nurse Jeffry Arndt RT Scrub Procedure Data Cath Procedure Fluoroscopy Diagnostic fluoroscopy Total fluoroscopy Time: time: 20.8 min 20.8 min Diagnostic fluoroscopy Total fluoroscopy dose: 652 dose: 652 mGy mGy Contrast Material Contrast Material Type Amount (ml) Isovue 300 60 Diagnostic catheters Device Type Used For End Catheter Placement Merit Matthew Reardon 5FR. 100CM catheter ([id number]) Merit matthew Samuel 2 cath 100cm ([id number]) Procedure Medications Medication Administration Route Dosage Heparin Flush Bag added to field 4 bags (1000units/500ml NS) Lidocaine 1% added to field 20 Fentanyl I.V. 50 mcg Versed I.V. 1 mg Heparin Bolus I.V. 5000 units Hydralizine I.V. 10 mg Heparin Bolus I.V. 2500 units Fentanyl I.V. 50 mcg Versed I.V. 1 mg Hemodynamics Rest BSA: 2.21 (m2) O2 Consumption: Estimated: 247.33 (ml/min) O2 Consumption indexed : Estimated:111.91 (ml/min/m) Heart Rate: 64 (bpm) Snapshots Pre Cath Intra NCS Post Cath Vital Signs Time Heart Resp SPO2 etCO2 NIBP (mmHg) Rhythm Pain Sedation Rate (ipm) (%) (mmHg) Status Level (bpm) 9:36:52 65 10 100 35.1 Measuring NSR 0 (11) 10(A) , No pain 9:37:04 64 10 100 36.6 170/102(147) NSR 0 (11) 9(A) , No pain 9:41:08 66 14 100 33.6 162/102(148) NSR 0 (11) 9(A) , No pain 9:45:30 65 12 100 34.3 160/101(148) NSR 0 (11) 9(A) , No pain 9:49:52 64 12 100 34.4 162/99(149) NSR 0 (11) 9(A) , No pain 9:54:14 63 14 100 34.4 156/106(137) NSR 0 (11) 9(A) , No pain 9:58:32 63 15 100 30.6 150/96(136) NSR 0 (11) 9(A) , No pain 10:02:50 67 10 100 32.8 165/97(152) NSR 0 (11) 9(A) , No pain 10:07:15 65 9 100 32.8 168/104(155) NSR 0 (11) 9(A) , No pain 10:09:11 63 10 99 34.3 156/111(146) NSR 0 (11) 9(A) , No pain 10:13:30 65 12 99 35.1 147/100(134) NSR 0 (11) 9(A) , No pain 10:17:45 66 8 98 31.3 160/104(143) NSR 0 (11) 9(A) , No pain 10:22:06 68 16 98 37.4 152/102(143) NSR 0 (11) 9(A) , No pain 10:26:24 70 14 98 36.6 160/107(142) NSR 0 (11) 9(A) , No pain 10:30:46 67 12 97 36.6 162/99(141) NSR 0 (11) 9(A) , No pain 10:35:06 69 13 97 35.1 157/101(141) NSR 0 (11) 9(A) , No pain 10:39:22 69 12 97 33.7 157/96(147) NSR 0 (11) 9(A) , No pain 10:43:44 69 13 97 33.7 148/90(135) NSR 0 (11) 9(A) , No pain 10:48:00 69 14 97 32.2 149/94(137) NSR 0 (11) 9(A) , No pain 10:52:18 68 10 97 32.9 144/90(129) NSR 0 (11) 9(A) , No pain 10:56:32 65 12 97 32.2 134/94(124) NSR 0 (11) 9(A) , No pain 11:00:46 62 11 97 31.4 134/86(119) NSR 0 (11) 9(A) , No pain 11:04:54 62 12 97 31.4 130/92(118) NSR 0 (11) 9(A) , No pain 11:09:08 58 9 97 31.4 121/80(98) NSR 0 (11) 9(A) , No pain 11:13:18 61 15 96 32.9 132/84(102) NSR 0 (11) 9(A) , No pain 11:17:30 61 0 29.9 132/89(115) NSR 0 (11) 9(A) , No pain Medications Time Medication Route Dose Verified Delivered Reason Notes Effectiveness by by 9:59:14 Heparin Flush added 4 Aleksandr Brandon used for Bag to bags Jg Gregorio procedure (1000units/500ml field MD BUSBY NS) 9:59:28 Lidocaine 1% added 20ml Aleksandr Brandon for local to vial Jg Gregorio anesthetic field MD BUSBY 10:05:34 Fentanyl I.V. 50 Aleksandr Morales for sedation mcg Jg White RN, MD 10:05:44 Versed I.V. 1 mg Aleksandr Morales for sedation Jg White RN, MD 10:06:45 Heparin Bolus I.V. 5000 Aleksandr Carmen for units Jg White RN anticoagulation 10:30:50 Hydralizine I.V. 10 mg Aleksandr Morales for Jg White RN hypertension MD 10:47:52 Heparin Bolus I.V. 2500 Aleksandr Carmen for units Jg White RN anticoagulation 11:04:14 Fentanyl I.V. 50 Aleksandr Morales for sedation mcg Jg White RN, MD 11:04:18 Versed I.V. 1 mg Aleksandr Morales for sedation Jg White RN, MD Procedure Log Time Note 9:08:19 Patient Height : 73 inches 9:08:23 Patient Weight : 212 lbs 9:08:53 Use device set IR Diagnostic 9:10:42 BENTSON 145cm wire (H94109) opened to sterile field. 9:10:43 Micropuncture VSI 4FR kit opened to sterile field. 9:10:44 TUBING Contrast Injection High Pressure ([id number]) opened to sterile field. 9:10:46 INFLATOR BasixTOUCH (VK1833) opened to sterile field. 9:10:47 MULLINS 260 wire (J80527) opened to sterile field. 9:10:48 GLIDE WIRE ANGLE 260cm (GH0402) opened to sterile field. 9:10:49 TORQUE DEVICE PLASTIC .038 ( TD01) opened to sterile field. 9:10:50 Tegaderm 4 x 4 (1626W) opened to sterile field. 9:10:51 Sterile Angiographic Pack opened to sterile field. 9:10:51 Bag Decanter (2001S) opened to sterile field. 9:10:55 ACIST Manifold (98600) opened to sterile field. 9:10:56 ACIST Hand Control (80222) opened to sterile field. 9:10:57 ACIST Syringe (59892) opened to sterile field. 9:14:18 Time tracking: Regular hours (M-F 7:00 - 5:00) 9:14:36 Patient received from Outpatients to IR Alert and oriented. Tansferred to table in Supine position. 9:14:39 Signed procedure consent form obtained from patient. 9:14:48 H&P Date Dictated: 08/06/2020 Within 30 days and on chart., H&P Addendu m completed by physician on day of procedure. (MUST COMPLETE FOR ALL OUTPATIENTS). 9:14:50 Pre-procedure instructions explained to patient. 9:14:50 Pre-op teaching completed and patient verbalized understanding. 9:14:53 Family in waiting room. 9:14:56 Patient NPO since Midnight. 9:15:20 Patient allergic to Penicillins 9:16:16 Patient allergic to Other allergypen-vee k 9:17:35 Is the patient allergic to Iodine/contrast media? No. 9:18:46 Is patient on blood thinner?Yes 9:19:01 ACC The patient was administered the following blood thiners within the last 24 hours: ACCAspirin, ACCPlavix 9:19:06 Patient diabetic? No. 9:19:14 - 9:19:16 ----Pre-sedation anethsthesia assessment.---- 9:19:20 Previous problem with sedation/anesthesia? No ? 9:19:27 Snore? Yes 9:19:29 Sleep apnea? No 9:19:37 Deviated septum? No 9:19:40 Opens mouth fully? Yes 9:19:49 Sticks out tongue? Yes 9:19:54 Airway obstruction? Yes cad 9:20:04 Dentures? No ? 9:20:28 Pre procedure: right dorsailis pedis pulse Doppler 9:20:32 Pre procedure: right posterior tibial pulse Doppler 9:20:41 Right groin area was prepped with chlora-prep and draped in sterile fashion 9:20:49 Alarms reviewed by Rogelio Huerta 9:20:52 - 9:35:01 ECG and BP/O2 sat monitors applied to patient. 9:35:03 Vital chart was started 9:35:04 Baseline sample Acquired. 9:35:05 Full Disclosure recording started 9:35:07 - 9:40:12 - 9:40:29 3a) 45-59 Moderately reduced kidney function. 9:40:37 Fire Safety Assessment: A--An alcohol-based skin anteseptic being used preoperatively., C--Open oxygen or nitrous oxide is being used. 9:41:37 CHOICE PT Extra Support J 300cm guide wire ([id number]) opened to steril e field. 9:41:56 A [facility] Reardon 5FR. 100CM catheter ([id number]) was advanced over the wire and used for . 9:59:14 Heparin Flush Bag (1000units/500ml NS) 4 bags added to field was administered by Aleksandr Gregorio MD; used for procedure; Verbal order read back and verified. 9:59:28 Lidocaine 1% 20ml vial added to field was administered by Aleksandr alonso MD; for local anesthetic; Verbal order read back and verified. 10:01:22 Physician arrived 10:01:23 --------ALL STOP TIME OUT------ 10:01:24 Final Timeout: patient, procedure, and site verified with staff and physician. All members of the team are in agreement. 10:02:03 Procedure started. 10:02:09 Local anesthetic to right femoral artery with Lidocaine 1% by Aleksandr Gregorio MD.INITIAL ACCESS ONLY 10:02:12 Arterial access obtained using ultrasound guidance. 10:02:43 Cook RAABE 6FR. 90cm guide sheath opened to sterile field. 10:05:34 Fentanyl 50 mcg I.V. was administered by Carmen White RN; for sedation ; Verbal order read back and verified. 10:05:44 Versed 1 mg I.V. was administered by Carmen White RN; for sedation; Verbal order read back and verified. 10:06:45 Heparin Bolus 5000 units I.V. was administered by Carmen White RN; for anticoagulation; Verbal order read back and verified. 10:15:48 ROADRUNNER .035 260 glide wire (O52402) opened to sterile field. 10:23:46 A KFx Medical Samuel 2 cath 100cm ([id number]) was advanced over the wire and used for . 10:26:26 SHEATH 6FR Destination (RSR01) opened to sterile field. 10:30:50 Hydralizine 10 mg I.V. was administered by Carmen White RN; for hypertension; Verbal order read back and verified. 10:47:52 Heparin Bolus 2500 units I.V. was administered by Carmen White RN; for anticoagulation; Verbal order read back and verified. 10:50:33 SPIDER EMBOLIC PROTECTION DEVICE 5MM ([id number]) opened to sterile field. 10:54:55 PROTEGE RX TAPERED 8-6MM X 30MM X 135CM stent ([id number]) was deploye d across Undefined1 . 10:55:15 Inflate balloon Inflation number: 1 A VIATRAC 6 x 2 x 135 balloon ([id number]) was prepped and advanced across the Undefined1 , then inflated . 11:04:14 Fentanyl 50 mcg I.V. was administered by Carmen White RN; for sedation ; Verbal order read back and verified. 11:04:18 Versed 1 mg I.V. was administered by Carmen White RN; for sedation; Verbal order read back and verified. 11:06:12 SHEATH 6FR [place] (UNJ183) opened to sterile field. 11:11:03 ANGIOSEAL-VIP PLUS 6 FR opened to sterile field. 11:11:39 Procedure ended.(Physican Out) 11:12:43 Fluoroscopy time 20.80 minutes. 11:12:48 Fluoroscopy dose: 652 mGy 11:12:48 Flurop Dose total: 652 11:13:01 Contrast amount:Isovue 300 60ml. 11:13:04 Procedure and supply charges have been captured, reviewed, submitted an d are correct. 11:20:19 Report given to ICU. 11:20:48 Vital chart was stopped Intervention Summary Intervention Notes Time ActionType Lesion and Equipment Action# Pressure Duration Attributes Used 10:54:55 Deploy self Undefined1 PROTEGE RX 1 expanding TAPERED 8-6MM stent X 30MM X 135CM stent ([id number]) 10:55:15 Inflate Undefined1 VIATRAC 6 x 2 1 0 00:00 balloon x 135 balloon ([id number]) Device Usage Item Name Manufacture Quantity Catalog Number Hospital Part Current Minimal Lot# / Charge Number Stock Stock Serial# Code CHRISTOPH 145cm Cook Medical 1 [id number] 5 wire ([id number]) Micropuncture VSI VASCULAR 1 7266V 987657 818204 5 VSI 4FR kit SOLUTIONS TUBING Merit 1 [id number] 463098 812045 029693 5 Contrast Medical Injection High Pressure (ZDU045M) INFLATOR Merit 1 EW4572 182477 896701 063156 5 BasixTOUCH Medical (FB6329) MULLINS 260 wire Cook Medical 1 R94138 307395 100543 832676 5 [id number] ([id number]) GLIDE WIRE Terumo 1 TO0297 639319 906908 609988 5 ANGLE 260cm (QV8613) TORQUE DEVICE Lowry 1 TD01 497740 034549 664582 5 PLASTIC .038 ( Scientific TD01) Tegaderm 4 x 4 3M 1 1626W 433734 643043 119634 5 (1626W) Sterile Cardinal 1 [id number] 892140 705054 5 Angiographic Health Pack Bag Decanter Microtek 1 2001S 566652 96666 837071 5 () Medical Inc. ACIST Manifold Acist 1 14619 862965 811841 835925 5 (13314) Medical Systems Inc ACIST Hand Acist 1 99021 130012 053588 772097 5 Control Medical (06828) Systems Inc ACIST Syringe Acist 1 65574 874000 751949 359786 20 (96989) Medical Systems Inc CHOICE PT Lowry 1 [id number] 88080820190426 347168 5 Extra Support Scientific J 300cm guide wire (9040374N0) Merit Impress Merit 1 [id number] 452807 368148 5 Reardon 5FR. Medical 100CM catheter ([id number]) Cook RAABE Spot Coffee 1 E13419 712687 409748 5 6FR. 90cm guide sheath ROADNN Spot Coffee 1 E44916 429727 103017 098771 5 [id number] .035 260 glide wire (R30252) Merit impress Merit 1 [id number] 743341 296759 0 Samuel 2 cath Medical 100cm ([id number]) SHEATH 6FR Terumo 1 RSR01 666248 21354 440375 5 Destination (RSR01) SPIDER EMBOLIC Medtronic 1 [id number] 590179 307752 5 PROTECTION DEVICE 5MM ([id number]) PROTEGE RX Medtronic 1 WDTZ-[id number] 786795 966403 257251 5 [id number] TAPERED 8-6MM X 30MM X 135CM stent ([id number]) VIATRAC 6 x 2 De Leon 1 [id number] 009400 372895 613350 5 x 135 balloon Vascular ([id number]) SHEATH 6FR Terumo 1 UXH078 584915 102071 909727 40 [place] (RKX692) ANGIOSEAL-[facility] Manuel 1 553957 141948 380619 243184 5 PLUS 6 FR Signature Audit [place] Stage Time Signature Unsigned Intra-Procedure 08/06/2020 Namrata Trujillo 11:20:40 AM RT(R) [facility] [address] [place] [address]
[~2020-07-27 13:42] MED LIST changes: +LISINOPRIL10 MG PO
[2020-08-06] VITALS (22 sets, daily range): BP systolic 115–154; BP diastolic 61–91; Ht 185.4 cm; Wt 97.5 kg
[2020-08-06 06:56] LABS: BASOPHILS 0.5 % (0-2); EOSINOPHILS 2.3 % (0-7); HEMATOCRIT 44.9 % (42.0-54.0); HEMOGLOBIN 14.6 g/dL (13.5-17.5); IMMATURE GRANULOCYTES 0.1 % (0-5); LYMPHOCYTES 38.9 % (15-50); MCH 28.1 pg (26.0-34.0); MCHC 32.5 g/dL (31.0-37.0); MCV 86.5 fL (80.0-100.0); MEAN PLATELET VOLUME 9.2 fL (7.4-10.4); MONOCYTES 11.5 % (2-11); NEUTROPHILS 46.7 % (40-80); PLATELET COUNT 265 10x3/uL (130-400); RBC 5.19 10x6/uL (4.20-6.10); RDW 13.9 % (11.5-14.5); WBC 7.5 10x3/uL (4.8-10.8)
[2020-08-06 07:13] LABS: APTT 30.7 SECONDS (22.8-39.4); INR 0.95 (0.85-1.17); PROTIME 12.7 SECONDS (11.6-15.0)
[2020-08-06] MEDS ORDERED: SYNTHROID100 MCG PO (07:23)
[2020-08-06 07:30] LABS: ANION GAP 13.7 mmol/L (8-16); CALCIUM 8.7 mg/dL (8.5-10.1); CARBON DIOXIDE 27.8 mmol/L (21.0-32.0); CREATININE - SERUM 1.5 mg/dL (0.6-1.3); POTASSIUM - SERUM 4.5 mmol/L (3.5-5.1)
--- NOTE | 2020-08-06 14:05 | NUR ---
PATIENT IS STABLE AND VSS. RT GROIN DRSG C/D/I. NO SIGN OF BLEEDING, BRUISING OR HEMATOMA. PATIENT TO REMAIN FLAT UNTIL 1530. OFFERED PATIENT URINAL DECLINES UNTIL HE CAN STAND UP. WILL CONTINUE TO MONITOR. SR UP X 2 BED IN LOW POSITION AND CALL LIGHT IN REACH.
--- NOTE | 2020-08-06 18:28 | NUR ---
PT RECEIVED TO CV01 FROM 2301. PT ALERT AND ORIENTED. IV TO RIGHT FOREARM WITH BICARB INFUSING. PT HAS DRESSING TO RT GROIN. PT ON ROOM AIR SATTING 96%. DENIES PAIN AT THIS TIME. DINNER TRAY BEDSIDE. CALL LIGHT IN REACH. WILL CONTINUE TO MONITOR.
[2020-08-07] VITALS (10 sets, daily range): BP systolic 115–157; BP diastolic 63–99
--- NOTE | 2020-08-07 07:20 | NUR ---
laying in bed resting comfortable, denies pain at this time, breakfast tray served, sitting up feeding self, call light in reach, will monitor
--- NOTE | 2020-08-07 10:00 | NUR ---
PIV DC'D AT THIS TIME, CATHETER INTACT
--- NOTE | 2020-08-07 10:10 | NUR ---
PT DISCHARGED VIA WHEELCHAIR HOME WITH PRESENT, DISCHARGE INSTRUCTIONS GIVEN AND MEDICATIONS EXPLAINED, PT VERBALIZES UNDERSTANDING, FOLLOW UP APPT MADE, NO DISTRESS NOTED AND DENIES PAIN
== END 2020-08-07 10:10 | disposition home or self-care (01) | DRG 36 ==
LOC: D.ICU 08-06 06:30 → D.SDCHOLD 08-06 06:30 → D.ICU 08-06 09:49 → D.CVICU 08-06 18:25
PROVIDERS: ADMIT Radiology Diagnostic Radiology; ATTEND Radiology Diagnostic Radiology
PROC: 037L3DZ Dilation of Left Internal Carotid Artery with Intraluminal Device, Percutaneous Approach (ICD-10-PCS; principal; 2020-08-06 09:00)
DX: I65.22 Occlusion and stenosis of left carotid artery (principal); Z95.1 Presence of aortocoronary bypass graft; Z87.891 Personal history of nicotine dependence

== ENCOUNTER 2020-12-31 17:25 | Emergency (ER) | payer MEDICARE, OTHER ==
[~2020-12-31] VITALS: Ht 185.4 cm; Wt 95.5 kg
[~2020-12-31 17:25] MED LIST changes: +SYNTHROID100 MCG PO
[2020-12-31 17:31] VITALS: BP 169/101; Ht 185.4 cm; Wt 95.5 kg
== END 2020-12-31 18:25 | disposition home or self-care (01) ==
LOC: D.ER 17:25
DX: R58 Hemorrhage, not elsewhere classified (principal); I10 Essential (primary) hypertension; K21.9 Gastro-esophageal reflux disease without esophagitis

== ENCOUNTER → 2021-01-24 09:32 | Outpatient (CLI) | payer MEDICARE, OTHER ==
[2020-12-31 17:31] VITALS: BMI 27.7
== END | disposition home or self-care (01) ==
LOC: D.CT 09:32
PROVIDERS: ATTEND Thoracic Surgery (Cardiothoracic Vascular Surgery)
DX: I71.4 Abdominal aortic aneurysm, without rupture (principal)